=== PATIENT | female | born 1955 | race Caucasian/White ===

== ENCOUNTER 2016-09-18 15:28 | Outpatient (CLI) | payer OTHER | END 2016-09-18 15:29 | disposition home or self-care (01) | DX: R05 Cough (principal); R06.00 Dyspnea, unspecified; I51.7 Cardiomegaly ==

== ENCOUNTER 2018-05-11 17:06 | Outpatient (CLI) | payer MEDICARE, OTHER ==
--- NOTE | 2018-05-12 08:02 | Ultrasound Report ---
Reason: ABNORMAL UTERINE AND VAGINAL BLEEDING, UNSPECIFIED Procedure Date: 05/11/2018 Accession Number: [id number] / [id number] Procedure: US - Pelvic w/Transvaginal CPT Code: FULL RESULT: EXAM: PELVIC ULTRASOUND EXAM DATE: 05/11/2018 06:37 PM. CLINICAL HISTORY: ABNORMAL UTERINE AND VAGINAL BLEEDING, UNSPECIFIED. COMPARISON: None. TECHNIQUE: Realtime transabdominal pelvic scan performed to identify the uterus and adnexa and as an overview of other pelvic structures, followed by transvaginal scan to provide greater detail of the uterus and adnexa, with static image documentation. FINDINGS: Uterus: 11.4 x 6.9 x 5.8 cm, volume 239 cc. Anteverted position. Normal overall size and echotexture. Masses: There are several uterine fibroids. There is a submucosal fibroid of the posterior body measuring 2.4 x 1.4 cm and causing greater than 50% impression upon the endometrium. There are several other myometrial fibroids measuring up to 2.9 cm Endometrium: 10 mm. Cervix: Unremarkable. The ovaries are not well visualized. The examination is limited by body habitus. Free Fluid: None. IMPRESSION: 1. Submucosal fibroid may be associated with clinical symptoms 2. The endometrial complex is enlarged for a postmenopausal patient. Recommend [facility] consultation. RADIA
== END 2018-05-11 17:07 | disposition home or self-care (01) ==
LOC: DI 17:06
PROVIDERS: ATTEND Registered Nurse
DX: N93.9 Abnormal uterine and vaginal bleeding, unspecified (principal); D25.0 Submucous leiomyoma of uterus
CPT/HCPCS: 76830; 76856

== ENCOUNTER 2019-12-26 12:15 | Outpatient (CLI) | payer MEDICARE, OTHER ==
--- NOTE | 2019-12-26 13:31 | CT Report ---
Reason: RENAL COLIC Procedure Date: 12/26/2019 Accession Number: [id number] / [id number] Procedure: CT - Abdomen/Pelvis WO CPT Code: Final Report FULL RESULT: EXAM: CT ABDOMEN AND PELVIS (CT KUB) EXAM DATE: 12/26/2019 12:30 PM. CLINICAL HISTORY: Renal colic. COMPARISONS: None. TECHNIQUE: Routine axial helical CT imaging was performed through the abdomen and pelvis without IV contrast. Reconstructions: Coronal and sagittal. In accordance with CT protocol optimization, one or more of the following dose reduction techniques were utilized for this exam: automated exposure control, adjustment of mA and/or KV based on patient size, or use of iterative reconstructive technique. FINDINGS: Lung Bases: Lung bases appear clear. Borderline cardiomegaly. Right Kidney/Ureter: No stones, hydronephrosis, or hydroureter. No perinephric fat stranding. Left Kidney/Ureter: 1 mm nonobstructing calculus in the lower pole. No hydronephrosis. No ureteral stones or dilatation. Other Solid Organs: Liver is subtly and diffusely decreased in attenuation, suggesting fatty infiltration. The spleen, pancreas, and adrenal glands appear within normal limits. Gallbladder/Bile Ducts: Previous cholecystectomy. No biliary ductal dilatation. Peritoneal Cavity: No bowel obstruction, free air or free fluid. No evidence of diverticulitis, colitis, or appendicitis. There is a small umbilical hernia containing mesenteric fat. Pelvic Organs: No bladder stones or wall thickening. Noncontrast images of the visualized pelvic organs are unremarkable. Vasculature: Mural calcification of the abdominal aorta. No aneurysm. Other: None. IMPRESSION: 1 mm nonobstructing left renal calculus. No right-sided nephrolithiasis. Suspected diffuse fatty infiltration of the liver. No acute appearing bowel processes detected. RADIA
== END 2019-12-26 12:16 | disposition home or self-care (01) ==
LOC: DI 12:15
PROVIDERS: ATTEND Registered Nurse
DX: N20.0 Calculus of kidney (principal)
CPT/HCPCS: 74176

== ENCOUNTER 2020-05-07 11:20 | Outpatient (CLI) | payer MEDICARE, OTHER ==
--- NOTE | 2020-05-07 12:27 | SLEEP CARE CONSULTATION ---
Information from patient questionnaire entered by Radha Camacho. I have reviewed and concur with the information entered by Radha Camacho. This document represents the service I personally performed and the decisions made by me, Darci Rodgers MD, [facility]. History of Present Illness Service Date and Time: 05/07/2020 1120 Reason for Visit: New patient Chief Complaint: reports: Insomnia, Unrefreshed sleep, Snoring, Excessive daytime sleepiness, Observed pauses in breathing, Fatigue, Frequent awakenings at night Date of Onset: years Usual bedtime: 2300 Time it takes to fall asleep: 30 minutes Snores at night: Yes Observed to quit breathing while asleep: No Sleeps alone due to snoring: No Number of times waking at night: 1-2 Reasons for waking at night: reports: Pain Toss, Turn, or Twitch while sleeping: Yes Usually gets out of bed at: [id number] Feels refreshed in the morning: No Morning headache: No Sleepy or fatigued during the day: No Ever fallen asleep while driving: No Takes day naps: No Dreams during day naps: No Prior sleep studies: Yes Year and Where: 10+ years ago, [facility] [place] Type of Sleep Study: Polysomnography Additional HPI information: I had the pleasure of seeing Ms. Toscano along with her daughter today regarding obstructive sleep apnea-hypopnea. As you know, she is a 65 year old lady who was diagnosed with very severe obstructive sleep apnea-hypopnea in 2012 at [facility]. Her AHI was 81.4 and vijay oxygen saturation, 77%. She was prescribed a CPAP which she used occasionally. She got a new autoCPAP device in October of 2016. The Respironics DreamStation was set at 14 20 cmH2O. She again used it sporadically and finally quit in February last year. Prior to quitting, the device reported a residual AHI of 12.6 and 4 minutes of large air leak a day. She has a ResMed AirFit N-10 nasal mask which she cannot use because she is a mouth breather. She had a full face mask in the past but was claustrophobic with it. She did reports significant improvement when she could use the CPAP and would like to try it again. [employer] is her durable medical supplier. Subjective Initial [place] Sleepiness Scale score: 2 (in 2020) Past Medical History Past Medical History: reports: Hypertension, Congestive Heart Failure, Arthritis, Fibromyalgia, Anxiety, Other (A Fib) Social History The patient's occupation is retired. Patient is and lives in [place]. Have you smoked in the past 12 months: No Cigarettes per day (20/pack): 2 (20/week) Years of smokin Quit date: 1973 Smoking Pack Years: 0.5 Alcohol use: Yes Alcohol amount and frequency: 2/daily Caffeine use: Yes Caffeine amount and frequency: 1-2 cups Family History Family history of sleep disordered breathing: Yes Family Hx Sleep Apnea: Other: Sleep apnea - Treated (children) Allergies and Home Medications Drug allergies reviewed: Yes Home medication list reviewed: Yes Review of Systems Weight gain over past 5 years: 30 Cardiovascular: reports: high blood pressure, irregular heart rate or pulse, leg or foot swelling Respiratory: reports: sputum production, chronic cough Gastrointestinal: denies: heartburn, difficulty swallowing, nausea, vomitting, diarrhea, abdominal pain, other Urinary: reports: incontinence Neurological: denies: headaches, seizure, head trauma, disorientation, speech dysfunction, gait or balance problems, fainting or unconsciousness, other Psychiatric: reports: anxiety Ear/Nose/Throat: reports: nasal congestion, sinus problems, tonsillectomy, wisdom teeth removed Endocrine: denies: thyroid disease, history of goiter, sluggishness, too hot or cold, excessive thirst, increased appetite, increased urination, unexplained weakness, other Musculoskeletal: reports: joint pain, neck pain, back pain, joint swelling, mobility problems Immunologic: reports: sneezing, rash, other (exema) Physical Exam Vital signs obtained and entered by: To minimize the risk of COVID-19 exposure, detailed exam was not performed. Height: 5 ft 7 in Weight: 375 lb Body Mass Index: 58.7 BMI Classification: Morbidly Obese Impression and Plan IMPRESSION: 1. Obstructive Sleep Apnea-Hypopnea Syndrome, very severe, as previously diagnosed. Besides loud snore, the patient is fairly asymptomatic. She does have hypertension that could be made worse with leaving obstructive sleep apnea- hypopnea untreated. Narrow oropharynx and obesity are common predisposing factors for obstructive sleep apnea-hypopnea syndrome. I will order her a newer full face mask. Plan: 1. Prescription made for supplies. RespirBidKinds DreamWear full face mask and ResMed F30i full face mask were specified. 2. Avoid long distance driving or when feeling sleepy. 3. Avoid alcohol, sedative and muscle relaxant around bedtime. 4. Attempt to lose weight. 5. Return for follow up in 1 2 months. Prescriptions: Device supplies Follow up with Sleep Care in: 1-2 months Follow up recommended for: Weight management Visit Type: In Office Other Participants: Child Time Spent with Patient (minutes): 15 Provider Statement: I spent 100% of the Face to Face Visit with the patient with greater than 50% spent counseling the patient and coordination of care.
== END 2020-05-07 11:21 | disposition home or self-care (01) ==
LOC: SC 11:20
PROVIDERS: ATTEND Internal Medicine Pulmonary Disease
DX: G47.33 Obstructive sleep apnea (adult) (pediatric) (principal); E66.01 Morbid (severe) obesity due to excess calories; Z68.43 Body mass index [BMI] 50.0-59.9, adult
CPT/HCPCS: 99203; G0463; 99212

== ENCOUNTER 2020-08-06 12:45 | Outpatient (CLI) | payer MEDICARE, OTHER ==
--- NOTE | 2020-08-06 23:04 | SLEEP CARE CONSULTATION ---
Information from patient questionnaire entered by Emili Lewis. I have reviewed and concur with the information entered by Emili Lewis. This document represents the service I personally performed and the decisions made by me, Darci Rodgers MD, [facility]. History of Present Illness Service Date and Time: 08/06/2020 1245 Previous diagnosis: Very Severe, Obstructive Sleep Apnea-Hypopnea Syndrome AHI: 81.4 (in 2012) Reason for follow up: three month Equipment type: CPAP Equipment obtained from: [employer] Mask style: Nasal Mask brand: Resmed Prior sleep studies: Yes Year and Where: 2013 - [facility] Type of Sleep Study: Polysomnography HPI additional information: HPI: Ms. Toscano returned today for annual follow up of nasal CPAP therapy. She was diagnosed to have very severe obstructive sleep apnea-hypopnea syndrome. The patient gets her supplies from [employer]. She now wears a Respironics DreamWear full face mask. She continues to use the device most nights but not all through the night. The compliance report shows usage in 27 nights out of the past 30 nights, averaging 4.6 hours a night. The > 4 hour compliance rate for the past 30 days is 60%. She complained of dryness in her nose despite having the heated humidifier set at 5. She thinks that the pressure of 14 - 20 cmH2O is too high as she can feel the pressure in her ears. On the CPAP therapy she notices improvement in her sleep quality, and that she wakes up feeling fresher in the morning and more awake/alert during the day. The average residual AHI is 4.0; and average time in large leak per day is 30 minutes. The 90th percentile pressure is 17 cmH2O. CPAP Compliance Data - Data Reviewed with Patient Average duration of nightly device use: 4 hr 36 min Compliance rate %: 60 Current pressure setting (cmH2O): 16-20 Humidity settin Heated hose settin Average residual AHI: 4.8 Average large leak: 30 min 53 sec Subjective Missed days of use due to: reports: mask issues Patient concerns: reports: nasal congestion, dry mouth, nose, throat, epistaxis Current pressure setting perceived as: too high Initial [place] Sleepiness Scale score: 2 (in 2019) Current [place] Sleepiness Scale score: 1 Allergies and Home Medications Drug allergies reviewed: Yes Home medication list reviewed: Yes Review of Systems Review of systems same as previous: Yes Physical Exam Vital signs obtained and entered by: To minimize the risk of COVID-19 exposure, detailed exam was not performed. Height: 5 ft 7 in Weight: 375 lb Body Mass Index: 58.7 BMI Classification: Morbidly Obese Impression and Plan IMPRESSION: 1. Obstructive Sleep Apnea-Hypopnea Syndrome, very severe, with the patient using the CPAP more but still has [id number] compliance. She reports significant improvement when she uses the CPAP. Her nasal passage dryness may be because she runs out of water near the end of the night. I will lower the pressure range for her comfort. PLAN: 1. AutoCPAP lowered to 10 - 15 cm H2O, saved on her memory card. 2. Try to lose weight 3. Fill the water reservoir back up when she goes to the bathroom in the middle of the night. 4. Return in two months to recheck the residual AHI on the lower pressure setting. Visit Type: In Office Time Spent with Patient (minutes): 15 Provider Statement: I spent 100% of the Face to Face Visit with the patient with greater than 50% spent counseling the patient and coordination of care.
== END 2020-08-06 12:46 | disposition home or self-care (01) ==
LOC: SC 12:45
PROVIDERS: ATTEND Internal Medicine Pulmonary Disease
DX: G47.33 Obstructive sleep apnea (adult) (pediatric) (principal); E66.01 Morbid (severe) obesity due to excess calories; Z68.43 Body mass index [BMI] 50.0-59.9, adult
CPT/HCPCS: 99213; G0463; 99212

== ENCOUNTER 2020-10-14 13:12 | Outpatient (CLI) | payer MEDICARE, OTHER ==
--- NOTE | 2020-10-14 13:10 | SLEEP CARE CONSULTATION ---
Information from patient questionnaire entered by Diogenes Maldonado. I have reviewed and concur with the information entered by Diogenes Maldonado. This document represents the service I personally performed and the decisions made by me, Darci Rodgers MD, [facility]. History of Present Illness Service Date and Time: 10/14/2020 1300 Previous diagnosis: Very Severe, Obstructive Sleep Apnea-Hypopnea Syndrome AHI: 81.4 Reason for follow up: other (2-month followup - pressure change) Equipment type: CPAP Equipment obtained from: [employer] ([place]) Prior sleep studies: Yes Year and Where: 10+ years ago, [facility], [place] Type of Sleep Study: Polysomnography HPI additional information: To minimize the risk of COVID-19 exposure, the patient has requested and consented to this telephone visit. The patient also agrees to having her insurance billed. HPI: Ms. Toscano returned today for follow up of nasal CPAP therapy after the pressure was lowered from 14 20 to 10 15 cmH2O. She reports using the device nightly and all through the night. The compliance report shows usage in 22 nights out of the past 30 nights, averaging 7.6 hours a night averaging. She complained of no particular problem with the device such as soreness on the face, dry nose, epistaxis, nasal congestion or headache. She thinks that the pressure of 10 - 15 cmH2O is comfortable. On the CPAP therapy she notices impr ovement in her sleep quality, and that she wakes up feeling fresher in the morning and more awake/alert during the day. Her notices no snore at all. The average residual AHI is 3.8 and average time in large leak per day is 13 minutes. CPAP Compliance Data - Data Reviewed with Patient Average duration of nightly device use: 7 h 36 min Compliance rate %: 63.3 Current pressure setting (cmH2O): 10-15 Humidity settin Heated hose settin Average residual AHI: 3.8 Average large leak: 13 min 11 sec Subjective Initial [place] Sleepiness Scale score: 2 (in 2019) Allergies and Home Medications Drug allergies reviewed: Yes Home medication list reviewed: Yes Review of Systems Review of systems same as previous: Yes Physical Exam Height: 5 ft 7 in Impression and Plan IMPRESSION: 1. Obstructive Sleep Apnea-Hypopnea Syndrome, with the patient doing well on nasal CPAP therapy. She has excellent compliance and significant clinical improvement. The current pressure appears effective and comfortable. Overall, she is very satisfied with treatment and plans to continue with it long-term. No adjustment is necessary today. PLAN: 1. Continue with autoCPAP set at 10 - 15 cmH2O. 2. Try to lose weight 3. Try other masks and nasal pillows. 4. Return in one year for follow up or earlier if there is any problem with the treatment. Follow up recommended for: Weight management Visit Type: Telehealth Phone Patient Location: Home Location of Provider: Office Patient agrees and consents to this telehealth visit type: Yes Patient agrees to have their insurance billed: Yes Time Spent with Patient (minutes): 12 Provider Statement: I spent 100% of the Telehealth Phone Call with the patient with greater than 50% spent counseling the patient and coordination of care.
== END 2020-10-14 13:13 | disposition home or self-care (01) ==
LOC: SC 13:12
PROVIDERS: ATTEND Internal Medicine Pulmonary Disease
DX: G47.33 Obstructive sleep apnea (adult) (pediatric) (principal)

== ENCOUNTER 2020-11-19 07:55 | Outpatient (CLI) | payer MEDICARE, OTHER ==
[2020-11-19 16:02] LABS: ALT ALANINE AMINOTRANSFERASE 41 IU/L (10-60); AST ASPARTATE AMINOTRANSFERASE 41 IU/L (10-42); CHOL/HDL RATIO 2.8 (<4.4); CHOLESTEROL 138 mg/dL; CK- CREATINE KINASE 70 IU/L (22-269); HDL CHOLESTEROL 49 mg/dL; LDL CHOLESTEROL,CALCULATED 65 mg/dL; LDL CHOLESTEROL,DIRECT 66 mg/dL; LDL/HDL RATIO 1.3 (<4.4); TRIGLYCERIDES 121 mg/dL; VLDL CHOLESTEROL 24 mg/dL
== END 2020-11-19 07:56 | disposition home or self-care (01) ==
LOC: LAB.S 07:55
PROVIDERS: ATTEND Internal Medicine Cardiovascular Disease
DX: E78.5 Hyperlipidemia, unspecified (principal)
CPT/HCPCS: 36415; 80061; 82550; 83721; 84450; 84460

== ENCOUNTER 2020-11-19 08:00 | Outpatient (CLI) | payer MEDICARE, OTHER ==
--- NOTE | 2020-11-19 11:54 | XRAY Report ---
PROCEDURE: Shoulder 3 View LT INDICATIONS: IMPINGEMENT SYNDROME OF LEFT SHOULDER TECHNIQUE: 3 views of the shoulder were acquired. COMPARISON: None. FINDINGS: Bones: No fractures or dislocations. There is moderate volume of joint space loss and pronounced mar ginal spurring at the humeral head and caudal glenoid. Subcortical sclerotic changes within the gleno id is present. No suspicious bony lesions. Visualized ribs appear intact. Soft tissues: No suspicious soft tissue calcifications. No visible loose bodies. IMPRESSION: 1. Moderate glenohumeral joint degenerative change. Reviewed by: Justine Gutiérrez MD on 11/19/2020 10:53 AM TOREY Approved by: Justine Gutiérrez MD on 11/19/2020 10:53 AM TOREY Station ID: [id number]
== END 2020-11-19 23:59 | disposition home or self-care (01) ==
LOC: DI.S 08:00
PROVIDERS: ATTEND Emergency Medicine
DX: M75.42 Impingement syndrome of left shoulder (principal); M19.012 Primary osteoarthritis, left shoulder; E78.5 Hyperlipidemia, unspecified
CPT/HCPCS: 36415; 80061; 82550; 83721; 84450; 84460

== ENCOUNTER 2021-01-04 13:59 | Outpatient (CLI) | payer MEDICARE, OTHER ==
--- NOTE | 2021-01-04 17:54 | XRAY Report ---
PROCEDURE: Hip w/Pelvis 2-3V RT INDICATIONS: RIGHT HIP PAIN TECHNIQUE: AP pelvis with lateral view(s) of the right hip(s). COMPARISON: None. FINDINGS: Bones: No fractures or dislocations. Pelvic ring appears intact. No suspicious bony lesions. There is moderate to severe superior joint space narrowing seen involving the right hip. There is ass ociated remodeling change, with subchondral sclerosis and osteophyte formation. Moderate degenerative change is seen of the contralateral left hip Soft tissues: The visualized bowel gas pattern is normal. No suspicious soft tissue calcifications. Note is made of pelvic phleboliths. IMPRESSION: Moderate to severe right hip degenerative change. Reviewed by: Scottie Bella MD on 01/04/2021 4:53 PM AKBALWINDER Approved by: Scottie Bella MD on 01/04/2021 4:53 PM AKBALWINDER Station ID: [id number]
== END 2021-01-04 14:00 | disposition home or self-care (01) ==
LOC: DI.S 13:59
PROVIDERS: ATTEND Registered Nurse
DX: M16.11 Unilateral primary osteoarthritis, right hip (principal)

== ENCOUNTER 2021-01-31 09:10 | Outpatient (CLI) | payer MEDICARE, OTHER ==
[2021-01-31] MEDS ORDERED: PERFLUTREN LIPID MICROSPHERES 1.65 MG/1.5 ML VIAL IVP ONE (12:27)
== END 2021-01-31 09:11 | disposition home or self-care (01) ==
LOC: DI 09:10
PROVIDERS: ATTEND Internal Medicine Cardiovascular Disease
DX: I48.91 Unspecified atrial fibrillation (principal); I51.7 Cardiomegaly; I87.8 Other specified disorders of veins
CPT/HCPCS: C8929; Q9957; 93306

== ENCOUNTER 2021-02-28 10:11 | Outpatient (CLI) | payer MEDICARE, OTHER ==
[~2021-02-28 10:11] MED LIST: BUFFERED LIDOCAINE 10 ML SYRINGE ONE; ROPIVACAINE 0.5% PF 20 ML AMPULE ONE; TRIAMCINOLONE 40 MG/ML VIAL ONE
[2021-02-28] MEDS ORDERED: BUFFERED LIDOCAINE 10 ML SYRINGE ONE (11:30)
[2021-02-28] MEDS: iohexoL-240 20 ML VIAL IVP ONE (16:16)
[2021-02-28] MEDS: BUFFERED LIDOCAINE 10 ML SYRINGE IU ONE (16:18)
[2021-02-28] MEDS: ROPIVACAINE 0.5% PF 20 ML AMPULE EP ONE (16:22)
[2021-02-28] MEDS: TRIAMCINOLONE 40 MG/ML VIAL IM ONE (16:24)
--- NOTE | 2021-03-07 15:39 | XRAY Report ---
PROCEDURE: Arthrogram Hip RT INDICATIONS: OSTEOARTHRITIS RIGHT HIP CONTRAST: CONTRAST: omnipaque FLUORO TIME: FLUORO TIME: 2.4 and NUMBER IMAGES: 2 TECHNIQUE: The indications, alternatives, benefits, risks, and complications of the procedure were explained to the patient. Written informed consent was obtained and placed in the chart. The patient was placed in an appropriate position on the fluoroscopy table, and a site was chosen for percutaneous access un christina fluoroscopic guidance. Local anesthetic was administered using a 1% lidocaine solution. A hypod ermic or spinal needle was then used to access the symptomatic joint. Intra-articular location of th e needle tip was confirmed by injecting a small amount of contrast, followed by steroid administratio n. The needle was then withdrawn, and a bandage applied to the puncture site. FINDINGS: Joint injected: Right hip Medications injected: 4 mL of 40 mg/mL Kenalog and 0.5% Ropivacaine mixture. Complications: None. Pain level prior to injection 9-10 Pain level after injection 0. IMPRESSION: Successful fluoroscopically guided administration of steroid and anaesthetic solution into the right hip joint. Reviewed by: Erma Aguero MD on 03/07/2021 3:38 PM PDT Approved by: Erma Aguero MD on 03/07/2021 3:38 PM PDT Station ID: [id number]
== END 2021-02-28 10:12 | disposition home or self-care (01) ==
LOC: DI 10:11
PROVIDERS: ATTEND Registered Nurse
DX: M16.11 Unilateral primary osteoarthritis, right hip (principal)
CPT/HCPCS: Q9966

== ENCOUNTER 2021-03-17 17:56 | Outpatient (CLI) | payer MEDICARE, OTHER ==
[2021-03-17 20:13] LABS: BASOPHILS # (AUTO) 0.1 10^3/uL (0.0-0.1); BASOPHILS % (AUTO) 0.5 %; EOSINOPHILS # (AUTO) 0.2 10^3/uL (0.0-0.7); EOSINOPHILS % (AUTO) 1.9 %; HGB - HEMOGLOBIN 11.9 g/dL (12.0-16.0); LYMPHOCYTES # (AUTO) 2.4 10^3/uL (1.5-3.5); LYMPHOCYTES % (AUTO) 25.8 %; MEAN CORPUSCULAR HEMOGLOBIN 33.4 pg (27.0-31.0); MEAN CORPUSCULAR HGB CONC 32.2 g/dL (32.0-36.0); MEAN CORPUSCULAR VOLUME 103.9 fL (81.0-99.0); MEAN PLATELET VOLUME 9.2 fL (7.9-10.8); MONOCYTES # (AUTO) 0.9 10^3/uL (0.0-1.0); MONOCYTES % (AUTO) 9.8 %; NEUTROPHILS # (AUTO) 5.7 10^3/uL (1.5-6.6); NEUTROPHILS % (AUTO) 61.4 %; PLT - PLATELET COUNT 250 10^3/uL (130-450); RED BLOOD COUNT 3.56 10^6/uL (4.20-5.40); RED CELL DISTRIBUTION WIDTH 14.5 % (12.0-15.0); WHITE BLOOD COUNT 9.3 x10^3/uL (4.8-10.8)
[2021-03-17 20:29] LABS: % IRON SATURATION 19 % (20-50); IRON 71 ug/dL (28-170); TOTAL IRON BINDING CAPACITY 374 ug/dL (250-450); TRANSFERRIN 267 mg/dL (192-382)
== END 2021-03-17 17:57 | disposition home or self-care (01) ==
LOC: LAB.S 17:56
PROVIDERS: ATTEND Registered Nurse
DX: N95.0 Postmenopausal bleeding (principal)
CPT/HCPCS: 36415; 82728; 83540; 84466; 85025

== ENCOUNTER 2021-03-31 13:57 | Outpatient (CLI) | payer MEDICARE, OTHER | END 2021-03-31 13:58 | disposition critical access hospital (66) | LOC: EMS 13:57 | DX: N93.9 Abnormal uterine and vaginal bleeding, unspecified (principal); R42 Dizziness and giddiness; R10.30 Lower abdominal pain, unspecified | CPT/HCPCS: A0425; A0427 ==

== ENCOUNTER 2021-03-31 14:28 | Emergency (ER) | payer MEDICARE, OTHER ==
[2021-03-31 15:07] LABS: BASOPHILS # (AUTO) 0.1 10^3/uL (0.0-0.1); BASOPHILS % (AUTO) 0.7 %; EOSINOPHILS # (AUTO) 0.1 10^3/uL (0.0-0.7); EOSINOPHILS % (AUTO) 1.9 %; HGB - HEMOGLOBIN 8.7 g/dL (12.0-16.0); LYMPHOCYTES # (AUTO) 1.7 10^3/uL (1.5-3.5); LYMPHOCYTES % (AUTO) 22.9 %; MEAN CORPUSCULAR HEMOGLOBIN 35.1 pg (27.0-31.0); MEAN CORPUSCULAR HGB CONC 32.2 g/dL (32.0-36.0); MEAN CORPUSCULAR VOLUME 108.9 fL (81.0-99.0); MEAN PLATELET VOLUME 8.4 fL (7.9-10.8); MONOCYTES # (AUTO) 0.7 10^3/uL (0.0-1.0); MONOCYTES % (AUTO) 10.2 %; NEUTROPHILS # (AUTO) 4.6 10^3/uL (1.5-6.6); NEUTROPHILS % (AUTO) 63.6 %; NRBC ABSOLUTE COUNT (AUTO) 0.07 x10^3/uL; PLT - PLATELET COUNT 215 10^3/uL (130-450); RED BLOOD COUNT 2.48 10^6/uL (4.20-5.40); RED CELL DISTRIBUTION WIDTH 15.4 % (12.0-15.0); WHITE BLOOD COUNT 7.3 x10^3/uL (4.8-10.8)
[2021-03-31 15:21] LABS: ALBUMIN 3.6 g/dL (3.2-5.5); ALBUMIN/GLOBULIN RATIO 1.3 (1.0-2.2); BILIRUBIN,TOTAL 0.6 mg/dL (0.2-1.0); CALCIUM 8.4 mg/dL (8.5-10.3); CREATININE 0.8 mg/dL (0.4-1.0); POTASSIUM 4.1 mmol/L (3.5-5.0); TOTAL PROTEIN 6.4 g/dL (6.7-8.2)
[2021-03-31] MEDS ORDERED: TRANEXAMIC ACID 1,000 MG in SODIUM CHLORIDE 0.9% 100ML 100 ML IV STA (15:33)
--- NOTE | 2021-03-31 15:40 | ED Physician Documentation ---
History of Present Illness - Stated complaint Stated Complaint: FEMALE - Chief complaint Chief Complaint: General - History obtained from History obtained from: Patient - History of Present Illness Timing: How many weeks ago (3.5) Pain level max: 0 Pain level now: 0 - Additonal information Additional information: 65-year-old female presents to the emergency department stating that she has a long history of dysfunctional uterine bleeding. She states she has seen several gynecologists. Her entire family has had to have hysterectomies. She is a Judaism and does not take blood products. She states increasing bleeding over the past 3-1/2 weeks. Feeling lightheaded, dizzy and weak. She states she has gone through 7-8 pads of this morning. She states she does wear 2-3 pads at a time. Nothing makes it better or worse. No chest pain. She states that she has had endometrial biopsies before, she believes that she had these [facility]. Review of Systems Ten Systems: 10 systems reviewed and negative Constitutional: denies: Fever, Chills Respiratory: denies: Cough GI: denies: Nausea, Vomiting : reports: Vaginal bleeding. denies: Dysuria, Frequency, Hesitancy Skin: denies: Rash Musculoskeletal: denies: Neck pain, Back pain Neurologic: denies: Headache PD PAST MEDICAL HISTORY - Past Medical History Past Medical History: Yes : Other (uterine fibroids.) - Present Medications Home Medications: Ambulatory Orders Medication Instructions Recorded Confirmed Atorvastatin [Lipitor] 40 mg PO DAILY 03/31/21 03/31/21 DULoxetine [Cymbalta] 20 mg PO DAILY 03/31/21 03/31/21 Furosemide [Lasix] 40 mg PO DAILY 03/31/21 03/31/21 Irbesartan [Avapro] 75 mg PO DAILY 03/31/21 03/31/21 Medroxyprogesterone Acetate 10 mg PO DAILY #30 tablet 03/31/21 [Provera] Metoprolol Succinate [Toprol Xl] 75 mg PO DAILY 03/31/21 03/31/21 Progesterone,Micronized 200 mg PO DAILY 03/31/21 03/31/21 [Prometrium] Rivaroxaban [Xarelto] 20 mg PO DAILY 03/31/21 03/31/21 - Allergies Allergies/Adverse Reactions: Allergies Allergy/AdvReac Type Severity Reaction Status Date / Time atenolol Allergy Respiratory Verified 03/31/21 14:49 lisinopril Allergy Respiratory Verified 03/31/21 14:49 - Living Situation Living Situation: reports: With family Living Arrangement: reports: At home - Social History Does the pt smoke?: No Does the pt have substance abuse?: No - Family History Family history: reports: Non contributory PD ED PE NORMAL - Vitals Vital signs reviewed: Yes - General General: Alert and oriented X 3, No acute distress, Well developed/nourished - HEENT HEENT: PERRL, Moist mucous membranes - Neck Neck: Supple, no meningeal sign - Cardiac Cardiac: RRR, Strong equal pulses - Respiratory Respiratory: No respiratory distress, Clear bilaterally - Abdomen Abdomen: Soft, Non tender, Non distended - Derm Derm: Warm and dry - Extremities Extremities: No edema - Neuro Neuro: Alert and oriented X 3 - Psych Psych: Normal mood, Normal affect Results - Vitals Vitals: Vital Signs - 24 hr 03/31/21 03/31/21 03/31/21 14:44 15:18 15:30 Temperature 36.4 C L Heart Rate 114 H 106 H 103 H Respiratory 16 19 21 Rate Blood Pressure 104/50 L 104/77 102/69 O2 Saturation 95 98 97 03/31/21 03/31/21 03/31/21 16:00 16:30 17:00 Temperature 36.5 C Heart Rate 98 133 H 107 H Respiratory 18 19 22 Rate Blood Pressure 100/65 85/74 L 105/61 O2 Saturation 100 95 94 03/31/21 03/31/21 03/31/21 17:30 18:00 18:30 Temperature Heart Rate 103 H 95 98 Respiratory 17 20 19 Rate Blood Pressure 120/72 113/77 100/70 O2 Saturation 96 100 98 03/31/21 03/31/21 19:00 19:30 Temperature 36.6 C Heart Rate 102 H 84 Respiratory 18 16 Rate Blood Pressure 104/71 106/50 L O2 Saturation 100 98 Oxygen O2 Source Room air - Labs Labs: Laboratory Tests 03/31/21 03/31/21 03/31/21 15:00 15:00 18:28 WBC 7.3 RBC 2.48 L Hgb 8.7 L 8.7 L Hct 27.0 L 27.4 L MCV 108.9 H MCH 35.1 H MCHC 32.2 RDW 15.4 H Plt Count 215 MPV 8.4 Neut # (Auto) 4.6 Lymph # (Auto) 1.7 [place] # (Auto) 0.7 Eos # (Auto) 0.1 Baso # (Auto) 0.1 Absolute Nucleated RBC 0.07 Nucleated RBC % 1.0 Sodium 136 Potassium 4.1 Chloride 97 L Carbon Dioxide 27 Anion Gap 12.0 BUN 13 Creatinine 0.8 Estimated GFR (MDRD) 72 L Glucose 124 H Calcium 8.4 L Total Bilirubin 0.6 AST 28 ALT 23 Alkaline Phosphatase 47 Total Protein 6.4 L Albumin 3.6 Globulin 2.8 Albumin/Globulin Ratio 1.3 Lipase 48 - Rads (name of study) Pelvic ultrasound Radiology: Final report received, EMP read contemporaneously, See rad report PD MEDICAL DECISION MAKING - ED course Complexity details: reviewed results, re-evaluated patient, considered differential, d/w patient, d/w family, d/w sales support consultant ED course: 65-year-old female presents with dysfunctional uterine bleeding and menorrhagia. Given tranexamic acid. Discussed the case with Dr. Toscano, gynecology on- call who came and evaluated the patient in the emergency department. Recommends medroxyprogesterone. She will plan on taking the patient likely later this week for a D&C. Patient is also on Eliquis. Recommend that she hold this for a few weeks until her bleeding has resolved. She would consider being switched to aspirin for her A. fib. We will have her follow-up with her doctor regarding this. Hemoglobin is stable in the emergency department. Bleeding seems to have slowed significantly. Patient and family counseled regarding signs and symptoms for which I believe and urgent re-evaluation would be necessary. Patient with good understanding of and agreement to plan and is comfortable going home at this time This document was made in part using voice recognition software. While efforts are made to proofread this document, sound alike and grammatical errors may occur. IMPRESSION: 1. Enlarged leiomyomatous uterus. 2. Thickened endometrium raises suspicion for endometrial carcinoma. Recommend gynecologic consultation to evaluate for D C. 3. Fluid and clot in the cervical canal. Small 0.9 cm diameter masslike nodule noted in the cervical canal which could represent polyp, or other neoplastic process or blood Departure - Departure Disposition: 01 Home, Self Care Clinical Impression: Dysfunctional uterine bleeding Condition: Good Instructions: ED Bleed Irregular Vaginal Follow-Up: Sabine Wood ARNP [Primary Care Provider] - Iesha Toscano MD [Provider Admit Priv/Credential] - Prescriptions: Medroxyprogesterone Acetate [Provera] 10 mg PO DAILY #30 tablet Comments: Follow up with Dr. Toscano for further care. You should discuss with your primary care provider tomorrow stopping the Xarelto until your vaginal bleeding has resolved. They can try changing you to aspirin instead. Start the medroxyprogesterone tomorrow as well. Return if you worsen. Discharge Date/Time: 03/31/21 19:47
[2021-03-31] MEDS ORDERED: SODIUM CHLORIDE 0.9% 1,000 ML IV STA (16:39)
--- NOTE | 2021-03-31 17:46 | Ultrasound Report ---
PROCEDURE: Pelvic w/Transvag+Doppler Comp INDICATIONS: menorrhagia, dysfucntional uterine bleeding TECHNIQUE: Real-time scanning was performed of the pelvic organs, with image documentation. Additional endovagi nal scanning was necessary due to incomplete visualization of the adnexal and endometrial structures by transabdominal scanning. COMPARISON: None. FINDINGS: No pathologic free abdominal or pelvic fluid. Uterus: Uterus is normal in size at 14.1 x 5.9 x 6.8 cm. Uterus is anteverted. Multiple uterine fibr oids identified. There is a 1.6 x 1.5 x 2.0 cm posterior submucosal uterine fibroid noted which produ tika mass effect on the endometrium. The endometrium measures 15.9 mm in combined thickness. Fluid and clot noted in the cervical canal. There is a masslike nodule in the cervical canal measures 0.9 cm i n diameter which may represent polyp or other neoplastic process versus blood clot. Ovaries: Right and left ovary are not identified and cannot be evaluated. IMPRESSION: 1. Enlarged leiomyomatous uterus. 2. Thickened endometrium raises suspicion for endometrial carcinoma. Recommend gynecologic consultati on to evaluate for D&C. 3. Fluid and clot in the cervical canal. Small 0.9 cm diameter masslike nodule noted in the cervical canal which could represent polyp, or other neoplastic process or blood Reviewed by: Chitra Melendrez MD, PhD on 03/31/2021 5:45 PM PDT Approved by: Chitra Melendrez MD, PhD on 03/31/2021 5:45 PM PDT Station ID: [id number]
[2021-03-31 18:34] LABS: HCT - HEMATOCRIT 27.4 % (37.0-47.0); HGB - HEMOGLOBIN 8.7 g/dL (12.0-16.0)
--- NOTE | 2021-03-31 18:39 | CONSULTATION NOTE ---
Referring Provider Consult Date: 03/31/21 History - Past Medical History : reports: Other (uterine fibroids.) - Family & Social History Living arrangement: At home Living Situation: With family Meds/Allgy - Home Medications Home Medications: Ambulatory Orders Medication Instructions Recorded Confirmed Atorvastatin [Lipitor] 40 mg PO DAILY 03/31/21 03/31/21 DULoxetine [Cymbalta] 20 mg PO DAILY 03/31/21 03/31/21 Furosemide [Lasix] 40 mg PO DAILY 03/31/21 03/31/21 Irbesartan [Avapro] 75 mg PO DAILY 03/31/21 03/31/21 Medroxyprogesterone Acetate 10 mg PO DAILY #30 tablet 03/31/21 [Provera] Metoprolol Succinate [Toprol Xl] 75 mg PO DAILY 03/31/21 03/31/21 Progesterone,Micronized 200 mg PO DAILY 03/31/21 03/31/21 [Prometrium] Rivaroxaban [Xarelto] 20 mg PO DAILY 03/31/21 03/31/21 - Allergies Allergies/Adverse Reactions: Allergies Allergy/AdvReac Type Severity Reaction Status Date / Time atenolol Allergy Respiratory Verified 03/31/21 14:49 lisinopril Allergy Respiratory Verified 03/31/21 14:49 Exam - Vital Signs Vital Signs: Vital Signs x48h Temp Pulse Resp BP Pulse Ox 03/31/21 18:30 98 19 100/70 98 03/31/21 18:00 95 20 113/77 100 03/31/21 17:30 103 H 17 120/72 96 03/31/21 17:00 107 H 22 105/61 94 03/31/21 16:30 133 H 19 85/74 L 95 03/31/21 16:00 97.7 F 98 18 100/65 100 03/31/21 15:30 103 H 21 102/69 97 03/31/21 15:18 106 H 19 104/77 98 03/31/21 14:44 97.6 F L 114 H 16 104/50 L 95 Conclusion/Plan - Lab Results Fish Bones: 03/31/21 18:28 03/31/21 15:00
[2021-03-31 19:47] VITALS: BP 106/50
== END 2021-03-31 19:47 | disposition home or self-care (01) ==
LOC: EDUNIT# → ED 14:28
DX: N93.8 Other specified abnormal uterine and vaginal bleeding (principal); N92.0 Excessive and frequent menstruation with regular cycle; D25.0 Submucous leiomyoma of uterus; Z79.01 Long term (current) use of anticoagulants; I48.91 Unspecified atrial fibrillation; Z20.822 Contact with and (suspected) exposure to COVID-19
CPT/HCPCS: 36415; 76830; 76856; 80053; 83690; 85014; 85018; 85025; 93975; 96361; 96365; 99284; A9270; U0004

== ENCOUNTER 2021-04-15 06:30 | Day surgery (SDC) | payer MEDICARE, OTHER ==
[2021-04-15] MEDS ORDERED: LACTATED RINGERS 1,000 ML IV ONE ×2 (06:41→09:49)
[2021-04-15] MEDS ORDERED: PROPOFOL 200 MG/20 ML VIAL IVP ONE (07:06)
[2021-04-15] MEDS ORDERED: ONDANSETRON 4 MG/2 ML VIAL ONE (07:06)
[2021-04-15] MEDS ORDERED: DEXAMETHASONE 4 MG/ML VIAL ONE (07:06)
[2021-04-15] MEDS ORDERED: LIDOCAINE-MPF 2% 5 ML VIAL ONE (07:06)
[2021-04-15] MEDS ORDERED: ROCURONIUM 50 MG/5 ML VIAL ONE (07:06)
[2021-04-15] MEDS ORDERED: fentaNYL 100 MCG/2 ML VIAL ONE (07:06)
[2021-04-15] MEDS ORDERED: BUPIVACAINE 0.5%-EPI 1:200000 PF 30 ML VIAL ONE (07:15)
[2021-04-15] MEDS ORDERED: SILVER NITRATE APPLICATOR TOP ONE ×3 (07:15→09:33)
--- NOTE | 2021-04-15 07:15 | ANESTHESIA ---
Pre-Anesthesia VS, & Labs - Diagnosis post-menopausal bleeding, thickened endometrium - Procedure Myosure hysteroscopy, D&C with polypectomy Vital Signs: Temp Pulse Resp BP Pulse Ox 39 C H 99 14 130/81 H 99 04/15/21 06:41 04/15/21 06:41 04/15/21 06:41 04/15/21 06:41 04/15/21 06:41 Height: 5 ft 7 in Weight (kg): 164.7 kg Body Mass Index: 56.8 BMI Classification: Morbidly Obese - NPO >8 hours - Is Patient ?: No - Lab Results Lab results reviewed: Yes Fish Bones: 04/15/21 07:30 Home Medications and Allergies Home Medications: Ambulatory Orders Aspirin [Aspirin EC] 81 mg PO DAILY 04/14/21 traMADol [Ultram] 50 mg PO Q6H PRN 04/14/21 Atorvastatin [Lipitor] 40 mg PO DAILY 03/31/21 DULoxetine [Cymbalta] 40 mg PO DAILY 03/31/21 Furosemide [Lasix] 40 mg PO DAILY 03/31/21 Irbesartan [Avapro] 75 mg PO DAILY 03/31/21 Metoprolol Succinate [Toprol Xl] 150 mg PO DAILY 03/31/21 Rivaroxaban [Xarelto] 20 mg PO DAILY 03/31/21 Aspirin [Aspirin EC] 81 mg PO DAILY 04/14/21 traMADol [Ultram] 50 mg PO Q6H PRN 04/14/21 Allergies/Adverse Reactions: Allergies Allergy/AdvReac Type Severity Reaction Status Date / Time atenolol Allergy cough Verified 04/14/21 09:00 lisinopril Allergy cough Verified 04/14/21 09:00 Anes History & Medical History - Anesthetic History Anesthesia Complications: reports: No previous complications Family history of Anesthesia Complications: Denies Family history of Malignant Hyperthermia: Denies - Medical History Cardiovascular: reports: Hypertension, High cholesterol, Atrial fibrillation Pulmonary: reports: Sleep apnea, CPAP use Gastrointestinal: reports: None Urinary: reports: Incontinence Musculoskeletal: reports: Osteoarthritis Endocrine/Autoimmune: reports: None Skin: reports: Eczema, Rosacea Smoking Status: Never smoker History of Cancer?: No - Surgical History General: reports: Cholecystectomy, Colonoscopy Gynecologic: reports: Other Exam General: Alert, Oriented x3, Cooperative Dental: WNL Mouth Openin Fingerbreadth Neck Mobility: Normal Mallampati classification: I Thyromental Distance: greater than 6 cm Respiratory: Lungs clear, Normal breath sounds, No respiratory distress Cardiovascular: Other (AF) Neurological: Normal speech Mental/Cognitive Status: Alert/Oriented X3, Normal for patient Cognitive Status: Within normal limits Plan Anesthesia Type: General Consent for Procedure(s) Verified and Reviewed: Yes Code Status: Attempt Resuscitation ASA classification: 3-Severe systemic disease Is this case an emergency?: No
[2021-04-15 07:37] LABS: BASOPHILS % (AUTO) 0.7 %; EOSINOPHILS # (AUTO) 0.2 10^3/uL (0.0-0.7); EOSINOPHILS % (AUTO) 3.3 %; HCT - HEMATOCRIT 30.3 % (37.0-47.0); HGB - HEMOGLOBIN 9.2 g/dL (12.0-16.0); LYMPHOCYTES # (AUTO) 1.3 10^3/uL (1.5-3.5); LYMPHOCYTES % (AUTO) 22.1 %; MEAN CORPUSCULAR HEMOGLOBIN 33.5 pg (27.0-31.0); MEAN CORPUSCULAR HGB CONC 30.4 g/dL (32.0-36.0); MEAN CORPUSCULAR VOLUME 110.2 fL (81.0-99.0); MEAN PLATELET VOLUME 8.2 fL (7.9-10.8); MONOCYTES # (AUTO) 0.6 10^3/uL (0.0-1.0); MONOCYTES % (AUTO) 10.7 %; NEUTROPHILS # (AUTO) 3.7 10^3/uL (1.5-6.6); NEUTROPHILS % (AUTO) 62.9 %; PLT - PLATELET COUNT 244 10^3/uL (130-450); RED BLOOD COUNT 2.75 10^6/uL (4.20-5.40); RED CELL DISTRIBUTION WIDTH 15.2 % (12.0-15.0); WHITE BLOOD COUNT 5.8 x10^3/uL (4.8-10.8)
[2021-04-15] MEDS ORDERED: ONDANSETRON 4 MG/2 ML VIAL IVP PRN (07:40)
[2021-04-15] MEDS ORDERED: MORPHINE 2 MG/ML CARPUJECT IVP PRN (07:40)
[2021-04-15] MEDS ORDERED: HYDROmorphone 0.5 MG/0.5 ML SYRINGE IVP PRN (07:40)
[2021-04-15] MEDS ORDERED: fentaNYL 100 MCG/2 ML VIAL IVP PRN (07:40)
[2021-04-15] MEDS ORDERED: ATROPINE ABBOJECT 1 MG/10 ML SYRINGE IVP PRN (07:40)
[2021-04-15] MEDS ORDERED: METOCLOPRAMIDE 10 MG/2 ML VIAL IVP PRN (07:40)
[2021-04-15] MEDS ORDERED: NALOXONE 0.4 MG/ML VIAL IVP PRN (07:40)
[2021-04-15] MEDS ORDERED: ePHEDrine 50 MG/ML VIAL IVP PRN (07:40)
[2021-04-15] MEDS ORDERED: LACTATED RINGERS 1,000 ML IV SCH (08:00)
[2021-04-15] MEDS ORDERED: CELECOXIB 100 MG CAPSULE PO ONE (08:07)
[2021-04-15] MEDS ORDERED: GABAPENTIN 400 MG CAPSULE ONE (08:07)
[2021-04-15] MEDS ORDERED: ACETAMINOPHEN 1,000 MG/100 ML 100 ML IV ONE (08:07)
[2021-04-15] MEDS ORDERED: BUPIVACAINE 0.5%-EPI 1:200000 PF 30 ML VIAL SUBQ ONE ×2 (09:14)
[2021-04-15] MEDS ORDERED: SUGAMMADEX 200 MG/2 ML VIAL IVP ONE (09:15)
--- NOTE | 2021-04-15 09:59 | OPERATIVE REPORT ---
Operative Report - General Procedure Date: 04/15/21 Planned Procedure: Pap smear, hysteroscopy and polypectomy, vaginal polyp Pre-Op Diagnosis: Postmenopausal bleeding, inadequate cervical cancer screening, anemia Procedure Performed: Pap smear, hysteroscopy D&C and possible polypectomy, and vaginal polyp Post Op Diagnosis: Same and vaginal polyp - Procedure Note Primary Surgeon: Ramona Toscano MD Anesthesia Provider: Stefanie Maldonado CRNA Pathology: 1) Pap smear 2) uterine contents 3) vaginal polyp IV Fluids (mL): 1,000 Estimated Blood Loss (mL): 5 Urine Output (mL): 50 Indications: Patient is a 65 yo who presents to the ED with dysfunctional uterine bleeding. Patient reports that she received a cortisone shot on 03/01/21 for chronic hip pain. Bleeding started shortly after that time. She started with spotting for 3- 4 day but then increased so that she was soaking 3 pads at a time, several times a day. She had bleeding like this quite a few years ago. Had heavy menses prior to menopause. History of monthly cycles every 28 days lasting 3 days in duration. Has had pelvic us in the past as well as an EMB. Feels that she has had several EMB for on-going post-menopausal bleeding but has never progressed to a D&C. Voices a general distrust for medical establishment. Not clear if D&C was offered or if it was offered and declined. Has had 3 at age 14, 17, and 24. Reports heavy menses started after the of her daughter in her teen years. Last biopsy was likely about 2.5 years ago. Has been on micronized progesterone 200 mcg. She started Xarelto about a year ago for afib. BMI 59. [employer] and declines all blood products. Would like ot have a hysterectomy at [facility] given their program for "bloodless surgery", which is an optimization program to avoid transfusion among [place]. Has passed several large clots while in ED but is not actively hemorrhaging. Has switched from Xarelto to ASA Findings: Thickened polypoid lining with smaller polyp noted at left tubal ostia. Uterine cavity smooth at close of procedure. Bilateral tubal ostia. Complications: None - Other Other Information/Narrative: Risks benefits and alternatives to the procedure were reviewed. Consent was again confirmed. Patient was taken to the operating room where she underwent general anesthesia. She was positioned in dorsolithotomy position with legs resting in yellowfin stirrups. She was prepped and draped in the usual sterile fashion. Preoperative antibiotics were not indicated. Preoperative checklist was performed. Exam under anesthesia was performed. Speculum was placed in the vagina and the cervix was visualized. Single-tooth tenaculum was placed at the anterior cervical lip. Paracervical block was administered using a total of 20 cc of 0.5% bupivicaine with epinephrine was injected at the 4:00 and 8:00 positions lateral to the portio of the cervix. The cervical os was serially dilated with Hegar dilators to accommodate the caliber of the diagnostic hysteroscope. Uterus sounded to 9 cm. The hysteroscope was inserted and findings were noted as above. The hysteroscopic morcellator was inserted through the operative port. The intrauterine polyps were morcellated under direct visualization. Uterine cavity was smooth at close of the procedure. Hysteroscope was removed. All instruments were removed from the uterus. Tenaculum was removed. Tenaculum sites were noted to be hemostatic. Vaginal polyp noted at left lateral aspect of the vaginal wall. A total of 5 cc of 0.5% bupivicaine with epinephrine was injected into the polyp base. The polyp was grasped with ring forceps, was twisted, and was easily removed in pieces. Silver nitrate was applied to the polyp base. Good hemostasis noted. All instruments were removed from the vagina. Procedure was well-tolerated without complication. Fluid deficit: 540 cc
--- NOTE | 2021-04-15 10:32 | ANESTHESIA POST OP EVALUATION ---
Anesthesia Post Eval - Post Anesthesia Eval Vitals: Last Vital Signs Temp 36.2 C L 04/15/21 10:21 Pulse 97 04/15/21 10:21 Resp 14 04/15/21 10:21 BP 118/53 L 04/15/21 10:21 Pulse Ox 97 04/15/21 10:21 CV Function Including HR & BP: Stable Pain Control: Satisfactory Nausea & Vomiting: Negative Mental Status: Baseline Respiratory Status: Airway Patent Hydration Status: Satisfactory Anesthesia Complications: None
[2021-04-15 10:33] VITALS: BP 122/62
== END 2021-04-15 06:31 | disposition home or self-care (01) ==
LOC: SDS 06:30
PROVIDERS: ATTEND Obstetrics & Gynecology
PROC: 0UBG7ZZ Excision of Vagina, Via Natural or Artificial Opening (ICD-10-PCS; 2021-04-15)
PROC: 0UB98ZZ Excision of Uterus, Via Natural or Artificial Opening Endoscopic (ICD-10-PCS; principal; 2021-04-15 07:30)
DX: N93.8 Other specified abnormal uterine and vaginal bleeding (principal); N95.0 Postmenopausal bleeding; N84.0 Polyp of corpus uteri; N84.2 Polyp of vagina; R93.89 Abnormal findings on diagnostic imaging of other specified body structures; D25.0 Submucous leiomyoma of uterus; D64.9 Anemia, unspecified; E66.01 Morbid (severe) obesity due to excess calories; Z68.43 Body mass index [BMI] 50.0-59.9, adult; I48.91 Unspecified atrial fibrillation; G47.30 Sleep apnea, unspecified; Z79.01 Long term (current) use of anticoagulants; I10 Essential (primary) hypertension
CPT/HCPCS: 57135; 58558; 85025; A9270; J0131; J7120

== ENCOUNTER 2021-05-01 14:05 | Outpatient (CLI) | payer MEDICARE, OTHER ==
[2021-05-01 19:46] LABS: BASOPHILS # (AUTO) 0.1 10^3/uL (0.0-0.1); BASOPHILS % (AUTO) 0.8 %; EOSINOPHILS # (AUTO) 0.2 10^3/uL (0.0-0.7); HCT - HEMATOCRIT 37.9 % (37.0-47.0); HGB - HEMOGLOBIN 11.6 g/dL (12.0-16.0); LYMPHOCYTES # (AUTO) 1.8 10^3/uL (1.5-3.5); LYMPHOCYTES % (AUTO) 27.9 %; MEAN CORPUSCULAR HEMOGLOBIN 32.4 pg (27.0-31.0); MEAN CORPUSCULAR HGB CONC 30.6 g/dL (32.0-36.0); MEAN CORPUSCULAR VOLUME 105.9 fL (81.0-99.0); MEAN PLATELET VOLUME 8.5 fL (7.9-10.8); MONOCYTES # (AUTO) 0.6 10^3/uL (0.0-1.0); MONOCYTES % (AUTO) 9.9 %; NEUTROPHILS # (AUTO) 3.7 10^3/uL (1.5-6.6); NEUTROPHILS % (AUTO) 57.9 %; PLT - PLATELET COUNT 296 10^3/uL (130-450); RED BLOOD COUNT 3.58 10^6/uL (4.20-5.40); RED CELL DISTRIBUTION WIDTH 13.2 % (12.0-15.0); WHITE BLOOD COUNT 6.4 x10^3/uL (4.8-10.8)
[2021-05-01 21:03] LABS: % IRON SATURATION 30 % (20-50); IRON 132 ug/dL (28-170); TOTAL IRON BINDING CAPACITY 435 ug/dL (250-450); TRANSFERRIN 311 mg/dL (192-382)
== END 2021-05-01 14:06 | disposition home or self-care (01) ==
LOC: LAB.S 14:05
PROVIDERS: ATTEND Registered Nurse
DX: D50.9 Iron deficiency anemia, unspecified (principal)
CPT/HCPCS: 36415; 82728; 83540; 84466; 85025

== ENCOUNTER 2021-06-25 15:13 | Emergency (ER) | payer MEDICARE, OTHER ==
[2021-06-25 16:06] LABS: BASOPHILS # (AUTO) 0.1 10^3/uL (0.0-0.1); BASOPHILS % (AUTO) 0.8 %; EOSINOPHILS # (AUTO) 0.2 10^3/uL (0.0-0.7); EOSINOPHILS % (AUTO) 2.1 %; HCT - HEMATOCRIT 42.3 % (37.0-47.0); HGB - HEMOGLOBIN 13.6 g/dL (12.0-16.0); LYMPHOCYTES # (AUTO) 1.7 10^3/uL (1.5-3.5); LYMPHOCYTES % (AUTO) 18.3 %; MEAN CORPUSCULAR HEMOGLOBIN 31.9 pg (27.0-31.0); MEAN CORPUSCULAR HGB CONC 32.2 g/dL (32.0-36.0); MEAN CORPUSCULAR VOLUME 99.3 fL (81.0-99.0); MEAN PLATELET VOLUME 8.7 fL (7.9-10.8); MONOCYTES # (AUTO) 0.8 10^3/uL (0.0-1.0); MONOCYTES % (AUTO) 9.1 %; NEUTROPHILS # (AUTO) 6.3 10^3/uL (1.5-6.6); NEUTROPHILS % (AUTO) 69.5 %; PLT - PLATELET COUNT 264 10^3/uL (130-450); RED BLOOD COUNT 4.26 10^6/uL (4.20-5.40); RED CELL DISTRIBUTION WIDTH 15.6 % (12.0-15.0); WHITE BLOOD COUNT 9.1 x10^3/uL (4.8-10.8)
[2021-06-25 16:14] LABS: ALBUMIN/GLOBULIN RATIO 1.2 (1.0-2.2); BILIRUBIN,TOTAL 0.9 mg/dL (0.2-1.0); CALCIUM 9.5 mg/dL (8.5-10.3); CREATININE 0.7 mg/dL (0.4-1.0); POTASSIUM 3.6 mmol/L (3.5-5.0); TOTAL PROTEIN 7.4 g/dL (6.7-8.2)
--- NOTE | 2021-06-25 17:05 | ED Physician Documentation ---
History of Present Illness - Stated complaint Stated Complaint: FEMALE - Chief complaint Chief Complaint: Abd Pain - Additonal information Additional information: 66-year-old female who is a Latter day and has a longstanding history of dysfunctional uterine bleeding presents to the emergency department with persistent vaginal bleeding and shortness of air. She has been seen in this emergency department for similar last and mid March. At that time she was given some trans-Dot acid which slowed the bleeding. She ultimately went to surgery with Dr. Toscano on 15 April and had a D&C completed. She reports that after the D&C she had reduced bleeding but it did not stop. She was started on progesterone and recently had her dose increased on 01 June to 40 mg once daily Last pelvic ultrasound showed enlarged leiomyomatous uterus. With a thickened endometrium that was suspicious for an endometrial carcinoma. Patient denies any chest pain or syncope. She is a Latter day and declines all blood products. Past medical history includes atrial fibrillation for which she is on Xarelto Review of Systems Constitutional: denies: Fever, Myalgias Eyes: reports: Reviewed and negative Nose: reports: Reviewed and negative Throat: reports: Reviewed and negative Cardiac: reports: Reviewed and negative Respiratory: reports: Dyspnea. 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 - Present Medications Home Medications: Ambulatory Orders Medication Instructions Recorded Confirmed Atorvastatin [Lipitor] 40 mg PO DAILY 03/31/21 04/14/21 DULoxetine [Cymbalta] 40 mg PO DAILY 03/31/21 04/14/21 Furosemide [Lasix] 40 mg PO DAILY 03/31/21 04/14/21 Irbesartan [Avapro] 75 mg PO DAILY 03/31/21 04/14/21 Medroxyprogesterone Acetate 10 mg PO DAILY #30 tablet 03/31/21 04/14/21 [Provera] Metoprolol Succinate [Toprol Xl] 150 mg PO DAILY 03/31/21 04/14/21 Rivaroxaban [Xarelto] 20 mg PO DAILY 03/31/21 04/14/21 Aspirin [Aspirin EC] 81 mg PO DAILY 04/14/21 04/14/21 traMADol [Ultram] 50 mg PO Q6H PRN 04/14/21 04/14/21 Acetaminophen [Tylenol] 650 mg PO Q6H PRN #90 tablet 04/15/21 oxyCODONE [Roxicodone] 2.5 - 5 mg PO Q4H PRN #5 tablet 04/15/21 - Allergies Allergies/Adverse Reactions: Allergies Allergy/AdvReac Type Severity Reaction Status Date / Time atenolol Allergy cough Verified 06/25/21 15:25 lisinopril Allergy cough Verified 06/25/21 15:25 - Social History Does the pt smoke?: No Smoking Status: Never smoker Does the pt have substance abuse?: No PD ED PE EXPANDED - General General: Alert, No acute distress, Well developed/nourished - Cardiac Cardiac: Irregularly irregular, Radial strong equal, Pedal strong equal, Cap refill < 2 sec - Respiratory Respiratory: Clear to ausultation gianna. No: Distress, Labored - Abdomen Abdomen: Normal Bowel sounds. No: Tender to palpation (Abdominal exam limited by body habitus.) - Derm Derm: Normal color, Warm and dry. No: Rash - Extremities Extremities: Normal. No: Deformity, Tenderness - Neuro Neuro: Alert and Oriented X 3, CNII-XII intact - GCS Eye Opening: Spontaneous Motor: Obeys Commands Verbal: Oriented Total: 15 Results - Vitals Vitals: Vital Signs - 24 hr 06/25/21 06/25/21 15:22 17:14 Heart Rate 129 H 113 H Respiratory 18 22 Rate Blood Pressure 115/70 131/114 H O2 Saturation 98 97 Oxygen O2 Source Room air - EKG (time done) 1749 Rate: Rate (enter#) (109) Rhythm: Atrial fibrillation Intervals: No: Prolonged QT QRS: Normal Ischemia: Non specific changes Compare to prior EKG: Old EKG unavailable Computer interpretation: Agree with computer - Labs Labs: Laboratory Tests 06/25/21 06/25/21 06/25/21 15:49 15:49 15:49 WBC 9.1 RBC 4.26 Hgb 13.6 Hct 42.3 MCV 99.3 H MCH 31.9 H MCHC 32.2 RDW 15.6 H Plt Count 264 MPV 8.7 Neut # (Auto) 6.3 Lymph # (Auto) 1.7 Osborne # (Auto) 0.8 Eos # (Auto) 0.2 Baso # (Auto) 0.1 Absolute Nucleated RBC 0.00 Nucleated RBC % 0.0 Sodium 137 Potassium 3.6 Chloride 97 L Carbon Dioxide 26 Anion Gap 14.0 H BUN 14 Creatinine 0.7 Estimated GFR (MDRD) 83 L Glucose 125 H Calcium 9.5 Total Bilirubin 0.9 AST 37 ALT 27 Alkaline Phosphatase 46 Troponin I High Sens Total Protein 7.4 Albumin 4.0 Globulin 3.4 Albumin/Globulin Ratio 1.2 Lipase 39 Blood Type A POSITIVE 06/25/21 17:41 WBC RBC Hgb Hct MCV MCH MCHC RDW Plt Count MPV Neut # (Auto) Lymph # (Auto) Osborne # (Auto) Eos # (Auto) Baso # (Auto) Absolute Nucleated RBC Nucleated RBC % Sodium Potassium Chloride Carbon Dioxide Anion Gap BUN Creatinine Estimated GFR (MDRD) Glucose Calcium Total Bilirubin AST ALT Alkaline Phosphatase Troponin I High Sens 5.0 Total Protein Albumin Globulin Albumin/Globulin Ratio Lipase Blood Type - Rads (name of study) OB US Radiology: See rad report, Other (Markedly limited exam. Endometrium measures 11 to 13 mm. Ovaries were not identified. Uterine fibroids again noted.) PD MEDICAL DECISION MAKING - ED course Complexity details: reviewed results, re-evaluated patient, considered differential, d/w patient ED course: 66-year-old female who has a history of prolonged dysfunctional uterine bleeding presents the emergency department with worsening bleeding as well as some shortness of air and Feeling lightheaded. She was seen by OB today and advised to follow-up here in the ER. She does have a history of atrial fibrillation and is taking Xarelto. She has been referred to [facility] for consideration of a hysterectomy, but given the hx of Latter day, body habitus and the need to be anticoagulated secondary to atrial fib they felt she was too high risk for a hysterectomy. Today on presentation she appears very well and is not dyspneic room air saturations are 98%. She is noted to be in atrial fib the rate is anywhere from the 90s to the 110's. She denies chest pain or orthopnea. Screening hgb is 13 mg/dl This is markedly improved from recent. Otherwise her electrolytes are without worrisome findings. I did do an abdominal pelvic ultrasound which was limited secondary to body habitus. She does have a thickened endometrium. 190: I have spoken with Dr. Boone With PROFESSOR OF COMMUNICATION. She did come to the bedside and did a limited pelvic ultrasound. Given that the patient has postmenopausal bleeding And a normal hemogram they would recommend increasing the Provera to 20 mg 3 times daily. She is to follow-up with gynecology as soon as possible. Departure - Departure Disposition: Home, Self Care Clinical Impression: DUB (dysfunctional uterine bleeding), Anticoagulation adequate Condition: Stable Record reviewed to determine appropriate education?: Yes Comments: Vaishali you were seen today for concerns of abnormal uterine bleeding. You are most likely bleeding because of the fibroids in your uterus. However this is complicated because you are anticoagulated with your history of atrial fibrillation. Your blood count today is 13. Your hemoglobin remains very stable. Continue to take the iron. With the history of being Latter day as well as the need to remain anticoagulated your very high risk for surgery this is why [facility] was hesitant to perform a hysterectomy. You are seen today by our OB department. At this time we would like to increase your progesterone to 20 mg 3 times daily. Please schedule follow-up with OB as soon as possible. If you develop any fainting episodes, or severely short of breath, have a racing heart rate or feel that your symptoms are not improving then please return immediately to the ER for second evaluation.
--- NOTE | 2021-06-25 19:29 | Ultrasound Report ---
PROCEDURE: Pelvic w/Transvag+Doppler Comp INDICATIONS: vaginal bleeding; hx of d c TECHNIQUE: Real-time scanning was performed of the pelvic organs, with image documentation. Additional endovagi nal scanning was necessary due to incomplete visualization of the adnexal and endometrial structures by transabdominal scanning. COMPARISON: 03/31/2021 FINDINGS: No pathologic free abdominal or pelvic fluid. Uterus: Uterus is enlarged in size at 11.5 x 5.0 x 7.9 cm. Uterine volume measures 239 mL. Heterogen eous uterine echotexture with numerous fibroids. There is a posterior subserosal fibroid measuring 1. 4 x 2.0 x 1.3 cm. This is relatively stable in size compared to previous evaluations. The endometrium measures 13 mm in combined thickness. Multiple nabothian cyst noted. Ovaries: Ovaries were not able to be imaged secondary to patient's inability to be positioned adequa tely for transvaginal imaging of the ovaries. IMPRESSION: 1. Redemonstration of enlarged, heterogeneous leiomyomatous uterus with stable posterior subserosal f ibroid measuring up to 2.0 cm on today's study. 2. Heterogeneous, abnormally thickened endometrium. No focal endometrial mass lesions identified. In this postmenopausal patient, further evaluation with gynecologic consultation for possible endometria l biopsy is recommended. 3. Limited evaluation secondary to patient scanning characteristics. The ovaries were not able to be assessed. Reviewed by: Ahsan Cisneros MD on 06/25/2021 7:27 PM PST Approved by: Ahsan Cisneros MD on 06/25/2021 7:27 PM PST Station ID: [id number]
--- NOTE | 2021-06-25 20:09 | CONSULTATION NOTE ---
Referring Provider Consult Date: 06/25/21 Chief Complaint - Chief Complaint Chief Complaint: vaginal bleeding History of Present Illness - History of Present Illness HPI Comment/Other: Patient present to the ED with complaints of vaginal bleeding. She reports soaking 5 pad today and reports passage of clots. She has a known history of postmenopausal bleeding. Her medical history is complicated by atrial fibri llation for which she is on anticoagulation. She is followed by Dr. Toscano. She has had a d&C which showed benign polyps. 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 - Family & Social History Living Situation: With family - POLST Patient has POLST: No Meds/Allgy - Home Medications Home Medications: Ambulatory Orders Medication Instructions Recorded Confirmed Atorvastatin [Lipitor] 40 mg PO DAILY 03/31/21 04/14/21 DULoxetine [Cymbalta] 40 mg PO DAILY 03/31/21 04/14/21 Furosemide [Lasix] 40 mg PO DAILY 03/31/21 04/14/21 Irbesartan [Avapro] 75 mg PO DAILY 03/31/21 04/14/21 Medroxyprogesterone Acetate 10 mg PO DAILY #30 tablet 03/31/21 04/14/21 [Provera] Metoprolol Succinate [Toprol Xl] 150 mg PO DAILY 03/31/21 04/14/21 Rivaroxaban [Xarelto] 20 mg PO DAILY 03/31/21 04/14/21 Aspirin [Aspirin EC] 81 mg PO DAILY 04/14/21 04/14/21 traMADol [Ultram] 50 mg PO Q6H PRN 04/14/21 04/14/21 Acetaminophen [Tylenol] 650 mg PO Q6H PRN #90 tablet 04/15/21 oxyCODONE [Roxicodone] 2.5 - 5 mg PO Q4H PRN #5 tablet 04/15/21 - Allergies Allergies/Adverse Reactions: Allergies Allergy/AdvReac Type Severity Reaction Status Date / Time atenolol Allergy cough Verified 06/25/21 15:25 lisinopril Allergy cough Verified 06/25/21 15:25 Exam - Vital Signs Reviewed Vital Signs: Yes Vital Signs: Vital Signs x48h Pulse Resp BP Pulse Ox 06/25/21 17:14 113 H 22 131/114 H 97 06/25/21 15:22 129 H 18 115/70 98 - Physical Exam General Appearance: positive: No acute distress, Other (obese) Abdomen: positive: Non-tender Comments/Other: SSE with approx 20 cc of clot in the vaginal vault no active cervical bleeding noted. Conclusion/Plan - Lab Results Lab results reviewed: Yes Fish Bones: 06/25/21 15:49 06/25/21 15:49 - Other Other Results/Comments: 66 y/o with medical history of afib on xeralto presenting with vaginal bleeding. The patient was discussed with Dr. Toscano and history reviewed. She has been deem a poor surgical candidate by [facility] per Dr. Toscano's discussions with them. She has multiple commodities, is on anticoagulation and declines blood products. #Postmenopausal bleeding- hemoglobin stable. Exam without evidence of hemorrhage. Previously benign biopsy. Recommend provera 20 mg TID for 7 days for acute bleeding. F/u with gynecology [facility].
[2021-06-25 20:44] VITALS: BP 136/90
== END 2021-06-25 21:23 | disposition home or self-care (01) ==
LOC: ED 15:13
DX: N95.0 Postmenopausal bleeding (principal); D25.2 Subserosal leiomyoma of uterus; I48.91 Unspecified atrial fibrillation; Z79.01 Long term (current) use of anticoagulants
CPT/HCPCS: 36415; 80053; 83690; 84484; 85025; 86900; 86901; 93005; 93975; 99283; 99284

== ENCOUNTER 2021-08-23 09:06 | Outpatient (CLI) | payer MEDICARE, OTHER ==
[2021-08-23 15:41] LABS: % IRON SATURATION 18 % (20-50); ALT ALANINE AMINOTRANSFERASE 32 IU/L (10-60); AST ASPARTATE AMINOTRANSFERASE 36 IU/L (10-42); CHOL/HDL RATIO 3.3 (<4.4); CHOLESTEROL 119 mg/dL; CK- CREATINE KINASE 52 IU/L (22-269); HDL CHOLESTEROL 36 mg/dL; IRON 79 ug/dL (28-170); LDL CHOLESTEROL,CALCULATED 50 mg/dL; LDL/HDL RATIO 1.4 (<4.4); TOTAL IRON BINDING CAPACITY 433 ug/dL (250-450); TRANSFERRIN 309 mg/dL (192-382); TRIGLYCERIDES 167 mg/dL; VLDL CHOLESTEROL 33 mg/dL
== END 2021-08-23 09:07 | disposition home or self-care (01) ==
LOC: LAB.S 09:06
PROVIDERS: ATTEND Internal Medicine Cardiovascular Disease
DX: E78.5 Hyperlipidemia, unspecified (principal); D50.0 Iron deficiency anemia secondary to blood loss (chronic); Z13.1 Encounter for screening for diabetes mellitus
CPT/HCPCS: 36415; 80061; 81599; 82550; 82728; 83036; 83540; 83721; 84450; 84460; 84466; 85025

== ENCOUNTER 2021-08-25 15:32 | Outpatient (CLI) | payer MEDICARE, OTHER | END 2021-08-25 15:33 | disposition home or self-care (01) | LOC: LAB 15:32 | PROVIDERS: ATTEND Internal Medicine Cardiovascular Disease | DX: Z53.9 Procedure and treatment not carried out, unspecified reason (principal) ==

== ENCOUNTER 2021-08-25 15:41 | Outpatient (CLI) | payer MEDICARE, OTHER ==
[2021-08-25 20:35] LABS: HCT - HEMATOCRIT 43.8 % (37.0-47.0); HGB - HEMOGLOBIN 14.4 g/dL (12.0-16.0); MEAN CORPUSCULAR HEMOGLOBIN 33.2 pg (27.0-31.0); MEAN CORPUSCULAR HGB CONC 32.9 g/dL (32.0-36.0); MEAN CORPUSCULAR VOLUME 100.9 fL (81.0-99.0); RED BLOOD COUNT 4.34 10^6/uL (4.20-5.40); RED CELL DISTRIBUTION WIDTH 15.4 % (12.0-15.0); WHITE BLOOD COUNT 7.7 x10^3/uL (4.8-10.8)
[2021-08-25 23:33] LABS: ESTIMATED AVERAGE GLUCOSE 120 mg/dL (70-100); HEMOGLOBIN A1c% 5.8 % (4.27-6.07)
== END 2021-08-25 15:42 | disposition home or self-care (01) ==
LOC: LAB.S 15:41
PROVIDERS: ATTEND Registered Nurse
DX: D50.0 Iron deficiency anemia secondary to blood loss (chronic) (principal); Z13.1 Encounter for screening for diabetes mellitus
CPT/HCPCS: 36415; 83036; 85025; 85027

== ENCOUNTER 2021-12-05 08:00 | Outpatient (CLI) | payer MEDICARE, OTHER ==
--- NOTE | 2021-12-05 17:06 | XRAY Report ---
PROCEDURE: Foot 3 View RT INDICATIONS: RIGHT FOOT PAIN TECHNIQUE: 3 views of the foot were acquired. COMPARISON: None FINDINGS: Bones: No fractures or dislocations. No suspicious bony lesions. Large plantar calcaneal bone spur. Mild midfoot osteoarthritis. Soft tissues: No tibiotalar joint effusion. Achilles tendon appears normal. IMPRESSION: Calcaneal bone spur. Mild midfoot osteoarthritis. Reviewed by: Chitra Melendrez MD, PhD on 12/05/2021 5:05 PM PDT Approved by: Chitra Melendrez MD, PhD on 12/05/2021 5:05 PM PDT Station ID: [id number]
== END 2021-12-05 23:59 | disposition home or self-care (01) ==
LOC: DI.S 08:00
PROVIDERS: ATTEND Emergency Medicine
DX: M19.071 Primary osteoarthritis, right ankle and foot (principal); M77.31 Calcaneal spur, right foot

== ENCOUNTER 2022-02-13 13:54 | Outpatient (CLI) | payer MEDICARE, OTHER ==
--- NOTE | 2022-02-13 17:10 | XRAY Report ---
PROCEDURE: Ankle 3 View LT INDICATIONS: LEFT ANKLE XR TECHNIQUE: 3 views of the ankle were acquired. COMPARISON: None FINDINGS: Bones: No fractures or dislocations. Ankle mortise is normally aligned. No suspicious bony lesions . Large plantar calcaneal bone spur. Tibiotalar and midfoot osteoarthritis. Soft tissues: No tibiotalar joint effusion. Achilles tendon appears normal. Nonspecific soft tissu e swelling noted to be posttraumatic or infectious IMPRESSION: No fracture. No acute osseous lesion. If symptoms and/or clinical concern for pathology persists, fur ther assessment with repeat plain film radiographs (7-10 days) or advanced imaging (CT, MR, bone scan ) should be considered. Reviewed by: Chitra Melendrez MD, PhD on 02/13/2022 5:09 PM PDT Approved by: Chitra Melendrez MD, PhD on 02/13/2022 5:09 PM PDT Station ID: [id number]
== END 2022-02-13 13:55 | disposition home or self-care (01) ==
LOC: DI.S 13:54
PROVIDERS: ATTEND Nurse Practitioner Family
DX: M25.572 Pain in left ankle and joints of left foot (principal)

== ENCOUNTER 2022-05-07 08:00 | Outpatient (CLI) | payer MEDICARE, OTHER ==
--- NOTE | 2022-05-07 15:20 | XRAY Report ---
PROCEDURE: Knee 4 View BILAT INDICATIONS: BILAT KNEE PAIN TECHNIQUE: 4 views of both knees were acquired. COMPARISON: Right knee radiographs 09/02/2015. FINDINGS: Bones: No fractures or dislocations. No suspicious bony lesions. Right knee: Severe patellofemoral compartment narrowing with spurring. Severe medial, mild lateral co mpartment narrowing with spurring. Left knee: Severe patellofemoral compartment narrowing with spurring. Severe medial, mild lateral com partment narrowing with spurring. Soft tissues: No joint effusion. No suspicious soft tissue calcifications. IMPRESSION: Degenerative changes of both knees. Reviewed by: Travis Dao MD on 05/07/2022 3:19 PM PDT Approved by: Travis Dao MD on 05/07/2022 3:19 PM PDT Station ID: [id number]
== END 2022-05-07 23:59 | disposition home or self-care (01) ==
LOC: DI.WOS 08:00
PROVIDERS: ATTEND Physician Assistant
DX: M17.0 Bilateral primary osteoarthritis of knee (principal)

== ENCOUNTER 2022-05-11 08:00 | Outpatient (CLI) | payer MEDICARE, OTHER ==
--- NOTE | 2022-05-11 16:24 | XRAY Report ---
PROCEDURE: Shoulder 3 View LT INDICATIONS: LEFT SHOULDER PAIN TECHNIQUE: 4 views of the shoulder were acquired. COMPARISON: None. FINDINGS: Bones: No fractures or dislocations. No suspicious bony lesions. Visualized ribs appear intact. M oderate periarticular osteophyte formation at the, clavicular and glenohumeral joints. Soft tissues: No suspicious soft tissue calcifications. Rounded density projects over the scapula, suggestive of an intra-articular loose body. IMPRESSION: 1. Osteoarthritis. 2. Findings suggestive of intra-articular loose bodies. This could be further assessed with MRI arthr ography, if clinically indicated. 3. No acute fracture. No osseous lesion. If symptoms and/or clinical suspicion for pathology continue , further assessment with repeat plain films, or advanced imaging (e.g., CT, MRI, or bone scan) is re commended for further assessment. Reviewed by: Rosa Mccabe MD on 05/11/2022 4:23 PM PDT Approved by: Rosa Mccabe MD on 05/11/2022 4:23 PM PDT Station ID: [id number]
== END 2022-05-11 23:59 | disposition home or self-care (01) ==
LOC: DI.WOS 08:00
PROVIDERS: ATTEND Physician Assistant
DX: M19.012 Primary osteoarthritis, left shoulder (principal)

== ENCOUNTER 2022-08-13 07:19 | Outpatient (CLI) | payer MEDICARE, OTHER | END 2022-08-13 07:20 | disposition EMS.NT | LOC: EMS 07:19 | DX: Z03.89 Encounter for observation for other suspected diseases and conditions ruled out (principal) ==

== ENCOUNTER 2022-08-24 12:50 | Outpatient (CLI) | payer MEDICARE, OTHER ==
[2022-08-24 18:27] VITALS: BP 134/72
--- NOTE | 2022-08-24 18:27 | SLEEP CARE CONSULTATION ---
Information from patient questionnaire entered by Soumya Castillo. I have reviewed and concur with the information entered by Soumya Castillo. This document represents the service I personally performed and the decisions made by me, Darci Rodgers MD, [facility]. History of Present Illness Service Date and Time: 08/24/2022 1250 Previous diagnosis: Very Severe, Obstructive Sleep Apnea-Hypopnea Syndrome AHI: 81.4 Reason for follow up: annual (LAST SEEN 10/2020) Equipment type: CPAP (DREAM STATION) Equipment obtained from: [employer] ([place]) [facility]: Yes [facility] Type of Sleep Study: Polysomnography HPI additional information: Ms. Toscano returned today for follow up of nasal CPAP therapy. She was diagnosed to have very severe obstructive sleep apnea-hypopnea syndrome. The patient said she stopped using her [employer] DreamStation autoCPAP two years ago when the recall was announced. She said she resorted to sleeping in a recliner. She now has a DreamStation 2 that replaces her old one. She has not started using it yet. She has not gotten any supplies for a while. Sleep Study - Results Type of Sleep Study: Polysomnography Prior sleep studies: Yes [facility] and [facility] Subject[facility] Initial Colbert Sleepiness Scale score: 2 (in 2019) Current Colbert Sleepiness Scale score: 3 (08/24/22) Allergies and Home Medications Drug allergies reviewed: Yes Home medication list reviewed: Yes Allergy and home medication list: Allergies atenolol Allergy (Verified 06/25/21 15:25) cough lisinopril Allergy (Verified 06/25/21 15:25) cough Review of Systems Review of systems same as previous: Yes Physical Exam Vital signs obtained and entered by: SOUMYA Ramey MA Blood Pressure: 134/72 (LEFT WRIST) Cuff size: regular Heart Rate: 103 O2 Saturation: 93 Height: 5 ft 7 in Weight: 398 lb Body Mass Index: 62.3 BMI Classification: Morbidly Obese Impression and Plan IMPRESSION: 1. Obstructive Sleep Apnea-Hypopnea Syndrome, very severe (AHI was 81.[address] [facility]) with the patient not using her CPAP. She does have the new [employer] DreamStation 2 autoCPAP. Because she has lost some weight and is sleeping in a recliner, I will order a sleep study to confirm the diagnosis. The patient would like to have a home sleep apnea test (HSAT) which I think is a good idea because she can sleep in her recliner as she normally does. PLAN: 1. A home sleep apnea test (HSAT) with the patient sleeping in her recliner. 2. Try to lose weight 3. Return for follow up after the test. Counseling Topics: Weight control Follow up with Sleep Care in: 1-2 months Visit Type: In Office Time Spent with Patient (minutes): 15 Provider Statement: I spent 100% of the Face to Face Visit with the patient with greater than 50% spent counseling the patient and coordination of care.
== END 2022-08-24 12:51 | disposition home or self-care (01) ==
LOC: SC 12:50
PROVIDERS: ATTEND Internal Medicine Pulmonary Disease
DX: G47.33 Obstructive sleep apnea (adult) (pediatric) (principal); E66.01 Morbid (severe) obesity due to excess calories; Z68.44 Body mass index [BMI] 60.0-69.9, adult
CPT/HCPCS: 99212; G0463

== ENCOUNTER 2022-09-10 14:18 | Outpatient (CLI) | payer MEDICARE, OTHER | END 2022-09-10 14:19 | disposition home or self-care (01) | LOC: SC 14:18 | PROVIDERS: ATTEND Internal Medicine Pulmonary Disease | DX: G47.33 Obstructive sleep apnea (adult) (pediatric) (principal); R09.02 Hypoxemia; Z68.44 Body mass index [BMI] 60.0-69.9, adult | CPT/HCPCS: G0399 ×2; 95806 ==

== ENCOUNTER 2022-11-02 14:27 | Outpatient (CLI) | payer MEDICARE, OTHER ==
[2022-11-02 19:53] LABS: BASOPHILS % (AUTO) 0.6 %; EOSINOPHILS # (AUTO) 0.2 10^3/uL (0.0-0.7); EOSINOPHILS % (AUTO) 2.5 %; HCT - HEMATOCRIT 45.4 % (37.0-47.0); LYMPHOCYTES % (AUTO) 28.1 %; MEAN CORPUSCULAR HEMOGLOBIN 32.8 pg (27.0-31.0); MEAN CORPUSCULAR VOLUME 99.1 fL (81.0-99.0); MONOCYTES # (AUTO) 0.7 10^3/uL (0.0-1.0); MONOCYTES % (AUTO) 9.9 %; NEUTROPHILS # (AUTO) 4.2 10^3/uL (1.5-6.6); NEUTROPHILS % (AUTO) 58.6 %; PLT - PLATELET COUNT 257 10^3/uL (130-450); RED BLOOD COUNT 4.58 10^6/uL (4.20-5.40); RED CELL DISTRIBUTION WIDTH 12.7 % (12.0-15.0); WHITE BLOOD COUNT 7.1 x10^3/uL (4.8-10.8)
[2022-11-04 07:10] LABS: VITAMIN D 25-HYDROXY 90.6 ng/mL (30.0-100.0)
[2022-11-04 12:09] LABS: CALCIUM IONIZED SERUM 4.7 mg/dL (4.5-5.6)
== END 2022-11-02 14:28 | disposition home or self-care (01) ==
LOC: LAB.S 14:27
PROVIDERS: ATTEND Registered Nurse
DX: D75.1 Secondary polycythemia (principal); E83.52 Hypercalcemia
CPT/HCPCS: 36415; 82306; 82330; 82668; 83970; 85025

== ENCOUNTER 2022-11-02 14:39 | Outpatient (CLI) | payer MEDICARE, OTHER ==
--- NOTE | 2022-11-02 12:02 | SLEEP CARE CONSULTATION ---
Information from patient questionnaire entered by Pamela Castillo. I have reviewed and concur with the information entered by Pamela Castillo. This document represents the service I personally performed and the decisions made by me, Darci Rodgers MD, [facility]. History of Present Illness Service Date and Time: 11/02/2022 1100 Initial Roland Sleepiness Scale score: 2 (in 2019) Current Roland Sleepiness Scale score: 11 (11/02/22) Additional HPI information: Ms. Toscano returned for follow up of the home sleep apnea test (HSAT) she had on 09/10/2022. The test showed mild obstructive sleep apnea-hypopnea with an AHI of 12.3/hr and vijay SaO2 of 60%. During the study, the patient had 38 apneas (38 obstructive, 0 central, 0 mixed) and 73 hypopneas. The longest episode lasted 99.0 seconds. The patient only slept supine during this study (supine AHI was 12.3 and non-supine, 0.00). Hypoxemia was severe, with the lowest oxygen saturation of 60 % and 72.4 minutes with SaO2 under 90%. Baseline oxygen saturation was low-normal (Average oxygen saturation was 90%). The patient was informed of these findings. I explained to her that her home sleep apnea test showed mild obstructive sleep apnea-hypopnea with her sleeping in the recliner. Sleep Study - Results Type of Sleep Study: Home sleep study (COMPLETED 09/10/22) Prior sleep studies: Yes Year and Where: 10+ years ago, [facility] Allergies and Home Medications Drug allergies reviewed: Yes Home medication list reviewed: Yes Allergy and home medication list: Allergies atenolol Allergy (Verified 06/25/21 15:25) cough lisinopril Allergy (Verified 06/25/21 15:25) cough Physical Exam Vital signs obtained and entered by: PAMELA Ramey MA Height: 5 ft 6.5 in (per pt) Weight: 350 lb (per pt) Body Mass Index: 55.6 BMI Classification: Morbidly Obese Impression and Plan IMPRESSION: 1. Obstructive Sleep Apnea-Hypopnea Syndrome, mild (was very severe). The patient would like to not use the CPAP at this time because there is no noticeable improvement. She sleeps fine in the recliner. She may decide to go back and sleep in her bed later. If she does that, I recommend she use the CPAP again. PLAN: 1. Use CPAP as needed. 2. Attempt to lose weight. 3. Return for a follow up on as needed basis. Follow up with Sleep Care in: as needed Visit Type: Telehealth Phone Patient Location: Home Location of Provider: Office Time Spent with Patient (minutes): 15 Provider Statement: I spent 100% of the Telehealth Phone Call with the patient with greater than 50% spent counseling the patient and coordination of care.
== END 2022-11-02 14:40 | disposition home or self-care (01) ==
LOC: SC 14:39
PROVIDERS: ATTEND Internal Medicine Pulmonary Disease
DX: G47.33 Obstructive sleep apnea (adult) (pediatric) (principal); E66.01 Morbid (severe) obesity due to excess calories; Z68.43 Body mass index [BMI] 50.0-59.9, adult; E83.52 Hypercalcemia; D75.1 Secondary polycythemia
CPT/HCPCS: 36415; 82306; 82330; 82668; 83970; 85025; G2012

== ENCOUNTER 2022-11-10 15:19 | Outpatient (CLI) | payer MEDICARE, OTHER ==
--- NOTE | 2022-11-10 16:10 | XRAY Report ---
PROCEDURE: Shoulder 3 View RT INDICATIONS: RIGHT SHOULDER PAIN TECHNIQUE: 4 views of the shoulder were acquired. COMPARISON: None. FINDINGS: Bones: No fractures or dislocations. No suspicious bony lesions. Visualized ribs appear intact. Mo derate acromioclavicular joint and glenohumeral joint osteoarthritis. Soft tissues: No suspicious soft tissue calcifications. IMPRESSION: Moderate right acromioclavicular joint and glenohumeral joint osteoarthritis. Reviewed by: Chitra Melendrez MD, PhD on 11/10/2022 4:08 PM PDT Approved by: Chitra Melendrez MD, PhD on 11/10/2022 4:08 PM PDT Station ID: [id number]
== END 2022-11-10 15:20 | disposition home or self-care (01) ==
LOC: DI.WOS 15:19
PROVIDERS: ATTEND Physician Assistant Surgical
DX: M19.011 Primary osteoarthritis, right shoulder (principal)

== ENCOUNTER 2022-11-16 12:36 | Outpatient (CLI) | payer MEDICARE, OTHER ==
[~2022-11-16 12:36] MED LIST changes: -BUFFERED LIDOCAINE 10 ML SYRINGE ONE; +BUPIVACAINE 0.5% PF 10 ML VIAL ONE; +LIDOCAINE-MPF 1% 5 ML VIAL ONE; -ROPIVACAINE 0.5% PF 20 ML AMPULE ONE; +iohexoL-240 10 ML VIAL IVP ONE
[2022-11-16] MEDS ORDERED: iohexoL-240 10 ML VIAL IVP ONE (14:13)
[2022-11-16] MEDS ORDERED: BUPIVACAINE 0.5% PF 10 ML VIAL IM ONE (14:15)
[2022-11-16] MEDS ORDERED: TRIAMCINOLONE 40 MG/ML VIAL IM ONE (14:16)
[2022-11-16] MEDS ORDERED: LIDOCAINE-MPF 1% 5 ML VIAL TD ONE (14:17)
--- NOTE | 2022-11-16 15:11 | XRAY Report ---
PROCEDURE: Inj/Aspiration Major Joint INDICATIONS: PRIMARY OSTEOARTHRITIS RIGHT SHOULDER CONTRAST: Intra-articular FLUORO TIME: 0.1 TECHNIQUE: The indications, alternatives, benefits, risks, and complications of the procedure were explained to the patient. Written informed consent was obtained and placed in the chart. The patient was placed in an appropriate position on the fluoroscopy table, and a site was chosen for percutaneous access un christina fluoroscopic guidance. Local anesthetic was administered using a 1% lidocaine solution. A hypod ermic or spinal needle was then used to access the symptomatic joint. Intra-articular location of th e needle tip was confirmed by injecting a small amount of contrast, followed by steroid administratio n. The needle was then withdrawn, and a bandage applied to the puncture site. FINDINGS: Joint injected: Right shoulder Medications injected: 5 mL of 40 mg/mL Kenalog and 0.5% Ropivacaine mixture. Complications: None. IMPRESSION: Successful fluoroscopically guided administration of steroid and anaesthetic solution into the right shoulder joint. Reviewed by: Isaac Roman MD on 11/16/2022 3:10 PM PDT Approved by: Isaac Roman MD on 11/16/2022 3:10 PM PDT Station ID: [id number]
== END 2022-11-16 12:37 | disposition home or self-care (01) ==
LOC: DI 12:36
PROVIDERS: ATTEND Physician Assistant Surgical
DX: M19.011 Primary osteoarthritis, right shoulder (principal)
CPT/HCPCS: 20610; 77002; Q9966

== ENCOUNTER 2022-11-26 11:15 | Outpatient (CLI) | payer MEDICARE, OTHER | END 2022-11-26 11:30 | disposition home or self-care (01) | LOC: LAB.N 11:15 | PROVIDERS: ATTEND Registered Nurse | DX: R30.0 Dysuria (principal) | CPT/HCPCS: 87077; 87086; 87181 ==

== ENCOUNTER 2023-03-29 02:45 | Outpatient (CLI) | payer MEDICARE, OTHER | END 2023-03-29 23:59 | disposition critical access hospital (66) | LOC: EMS 02:45 | DX: S01.411A Laceration without foreign body of right cheek and temporomandibular area, initial encounter (principal); S00.11XA Contusion of right eyelid and periocular area, initial encounter; W18.12XA Fall from or off toilet with subsequent striking against object, initial encounter; Y92.002 Bathroom of unspecified non-institutional (private) residence as the place of occurrence of the external cause; Z79.01 Long term (current) use of anticoagulants | CPT/HCPCS: A0425; A0429 ==

== ENCOUNTER 2023-03-29 03:15 | Emergency (ER) | payer MEDICARE, OTHER ==
--- OUTSIDE RECORDS SUMMARY | 2023-03-29 03:40 | EXTERNAL MEDICAL SUMMARY RPT | Continuity of Care Document ---
Author Name Unknown Address [address] [place] [address] Phone Organization [place] Address [address] [place] [address] Phone Problems date description facility 2023-01-28 12:05 Other specified arthritis, [facility] 2023-01-28 12:10 Other specified arthritis, [facility] 2023-01-28 12:57 Other specified arthritis, [facility] Results/Labs test date facility value unit notes
--- NOTE | 2023-03-29 06:10 | ED Physician Documentation ---
History of Present Illness - Stated complaint Stated Complaint: GLF - Chief complaint Chief Complaint: Laceration - History obtained from History obtained from: Patient, EMS - Additonal information Additional information: The pt is [facility] for GLF and facial/head injury at home. She states she had "6 oz vodka" to drink tonight, but that she didn't feel drunk. She was turning to pull her pants down and sit on the toilet when she lost her balance and fell forward, hitting her face on the corner of the shower. No LOC. No other injuries. She is on Xarelto. No neck pain. 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 ANODIZING: Other - Present Medications Home Medications: Ambulatory Orders Medication Instructions Recorded Confirmed Atorvastatin [Lipitor] 40 mg PO DAILY 03/31/21 03/29/23 DULoxetine [Cymbalta] 40 mg PO DAILY 03/31/21 03/29/23 Furosemide [Lasix] 20 mg PO DAILY 03/31/21 03/29/23 Metoprolol Succinate [Toprol Xl] 150 mg PO DAILY 03/31/21 03/29/23 Rivaroxaban [Xarelto] 20 mg PO DAILY 03/31/21 03/29/23 metFORMIN [Glucophage] See Rx Instructions .ROUTE .COMPLEX 08/24/22 03/29/23 Amox/Clav 875/125 [Augmentin] 1 each PO Q12H #20 tablet 03/29/23 HYDROcod/ACETAM 5/325 [Gary 5/325] 1 - 2 tablet PO Q6H PRN #14 tablet 03/29/23 - Allergies Allergies/Adverse Reactions: Allergies Allergy/AdvReac Type Severity Reaction Status Date / Time atenolol Allergy cough Verified 03/29/23 03:25 bacitracin Allergy Unknown Verified 03/29/23 05:01 [From Neosporin ([id number])] lisinopril Allergy cough Verified 03/29/23 03:25 neomycin Allergy Unknown Verified 03/29/23 05:01 [From Neosporin ([id number])] polymyxin B Allergy Unknown Verified 03/29/23 05:01 [From Neosporin ([id number])] - Social History Does the pt smoke?: No Smoking Status: Never smoker Does the pt drink ETOH?: No Does the pt have substance abuse?: No - Immunizations Immunizations are current?: Yes - POLST Patient has POLST: No PD ED PE NORMAL - Vitals Vital signs reviewed: Yes - General General: Alert and oriented X 3, No acute distress, Well developed/nourished - HEENT HEENT: PERRL, Moist mucous membranes, Other (R periorbital contusion, mod. edema, no facial deformity. 2.5 cm lac over inf orb rim. EOMI except upward gaze mildly puentes secondary to R eye pain) - Neck Neck: Supple, no meningeal sign, No bony TTP - Cardiac Cardiac: RRR, No murmur - Respiratory Respiratory: Clear bilaterally - Abdomen Abdomen: Normal bowel sounds, Soft, Non tender, Non distended - Derm Derm: Warm and dry - Extremities Extremities: No deformity - Neuro Neuro: Alert and oriented X 3 - Psych Psych: Normal mood, Normal affect Results - Vitals Vitals: Oxygen O2 Source Room air - Rads (name of study) CT head Relevant Findings:: Final report received, See rad report (NAD) CT face Relevant Findings:: Final report received, See rad report (Inf and med orbital wall fx with entrapment of EOM and fat. Opacification of R maxillary sinus.) Procedures - Laceration (location) R face Length in cm: 2.5 Wound type: Linear, Into subcut fat, Clean Neurovascular status: Sensory intact, Motor intact, Vascular intact Anesthesia: Lidocaine 1% Wound preparation: Hibiclens, Irrigated copiously NS, Wound explored, To the base Skin layer closure: Nylon, Interrupted, Size #-0 - enter number (5.0), Sutures - enter # (6) Other: Patient tolerated well, No complications, Neurovascular intact, Dressing applied, Tetanus UTD PD Medical Decision Making - ED course Complexity details: reviewed results, re-evaluated patient, considered differential, d/w patient, d/w family, d/w strategic consultant ED course: The pt was found to have orbital wall fractures with demonstrated clinically and on diagnostic imaging. IOPs averaged 17 and 18 with 10 taps each with the Tonopen. I started the pt on abx and discussed the case with Dr. Manrique of ophthalmology and Dr. Arana of Craniofacial Surgery, both of [facility]. Ultimately, it was felt pt did not need transfer, but that they would like to follow her up urgently. The Transfer [facility] took the pt's contact information, and stated they would have the clinic call to set up an appointment. I discussed this with the pt and her family, and they were agreeable to the plan. I have prescribed antibiotics and analgesia. We have discussed wound care at home and the usual indications for return. Departure - Departure Disposition: Home, Self Care Clinical Impression: Orbital floor (blow-out) closed fracture, Laceration Medial orbital wall fracture Qualifiers: Encounter type: initial encounter Fracture type: closed Laterality: right Qualified Code(s): S02.831A - Fracture of medial orbital wall, right side, initial encounter for closed fracture Condition: Stable Instructions: ED Fx Face, ED Laceration Facial Sutr Tape Prescriptions: Amox/Clav 875/125 [Augmentin] 1 each PO Q12H #20 tablet HYDROcod/ACETAM 5/325 [Gary 5/325] 1 - 2 tablet PO Q6H PRN #14 tablet PRN Reason: Pain Comments: Your case was discussed with both Dr. Manrique of ophthalmology and Dr. Arana of craniofacial surgery at [facility]. They reviewed your CT scans, as well as your story and the findings on clinical exam, and they do not feel that you need emergent surgery at this time. You may not need surgery at all, but they would like to see you in person in the clinic and determine the best course of action with regard to your injuries. [facility]'s craniofacial/oculoplastics clinic will be calling you in the next day or two to set up a follow-up appointment. In the meantime, Dr. Arana has requested the following: Please use ice and pain medication as needed for discomfort. You should sleep with the head of the bed elevated to about 45 degrees. Please hold your Xarelto for at least 48 hours but ideally, until you are seen in their clinic, just in case she needs surgery. You should use artificial tears if you are having dry eyes. Ice packs can also be helpful for comfort and swelling. You have been given your first dose of antibiotics here, and a prescription for the same has been electronically transmitted to the [facility] in [place], your pharmacy of choice on record. Forms: PCP List Discharge Date/Time: 03/29/23 07:44
[2023-03-29] MEDS ORDERED: AMOX/CLAV 875 MG/125 MG TABLET PO STA (07:15)
[2023-03-29 07:38] VITALS: BP 108/80; O2SAT 97
--- NOTE | 2023-03-29 08:14 | CT Report ---
PROCEDURE: HEAD WO INDICATIONS: fall/head trauma/xarelto TECHNIQUE: Noncontrast 4.5 mm thick angled axial sections acquired from the foramen magnum to the vertex. For r adiation dose reduction, the following was used: automated exposure control, adjustment of mA and/or kV according to patient size. COMPARISON: None. FINDINGS: Image quality: Excellent. CSF spaces: Basal cisterns are patent. No extra-axial fluid collections. Ventricles are normal in size and shape. Brain: No midline shift. No intracranial masses or hemorrhage. Huber-white matter interface is norm al. Skull and face: Right orbital fracture and right facial injury. Please see separate facial bone CT report. Sinuses: Visualized sinuses and mastoids are clear. IMPRESSION: 1. No acute intracranial abnormality. 2. Right orbital fracture and right facial injury. Please see separate facial bone CT report. Findings are concordant with preliminary interpretation provided by [facility]. Reviewed by: Ethan Bailey MD on 03/29/2023 8:12 AM PDT Approved by: Ethan Bailey MD on 03/29/2023 8:12 AM PDT Station ID: [id number]
--- NOTE | 2023-03-29 08:19 | CT Report ---
PROCEDURE: MAXILLOFACIAL WO INDICATIONS: fall/facial trauma TECHNIQUE: Noncontrast 1.5 mm thick axial images acquired from the mandible through the frontal sinuses, with co malcolm and sagittal reformatting. For radiation dose reduction, the following was used: automated ex posure control, adjustment of mA and/or kV according to patient size. COMPARISON: Head CT, 03/29/2023. FINDINGS: Image quality: Excellent. Bones and teeth: There is a comminuted right orbital floor fracture with inferior displacement of fr acture fragments. In addition, there is a displaced fracture of the medial wall of the right orbit. Inferiorly displaced fracture fragment of the right orbital floor/maxillary sinus roof is seen. Nasa l bones and septum are intact. Visualized portions of the mandible demonstrate no fractures or sublu xation. Zygomatic arches are intact. Pterygoid plates are intact. Visualized portions of the skull base and auditory canals are intact. Sinuses: There is an air-fluid level in the right maxillary sinus consistent with a tumor. Mastoid a ir cells are aerated. Soft tissues: No edema, masses, or fluid collections. No enlarged lymph nodes. No soft tissue lace rations or debris. Vascular: Visualized vascular structures appear normal in the absence of contrast. Bony vascular fo ramina and canals are intact. IMPRESSION: 1. Comminuted right orbital floor (maxillary sinus roof) fracture with inferior displacement. There i s a hematoma in the right maxillary sinus. 2. Displaced fracture of the medial wall of the right orbit. No significant discrepancy with the preliminary interpretation. Reviewed by: Ethan Bailey MD on 03/29/2023 8:18 AM PDT Approved by: Ethan Bailey MD on 03/29/2023 8:18 AM PDT Station ID: [id number]
== END 2023-03-29 07:44 | disposition home or self-care (01) ==
LOC: EDUNIT# → ED 03:15
DX: S02.31XA Fracture of orbital floor, right side, initial encounter for closed fracture (principal); S02.831A Fracture of medial orbital wall, right side, initial encounter for closed fracture; S01.81XA Laceration without foreign body of other part of head, initial encounter; W18.30XA Fall on same level, unspecified, initial encounter; Y92.002 Bathroom of unspecified non-institutional (private) residence as the place of occurrence of the external cause; I10 Essential (primary) hypertension; E78.00 Pure hypercholesterolemia, unspecified; I48.91 Unspecified atrial fibrillation; Z79.899 Other long term (current) drug therapy; Z79.84 Long term (current) use of oral hypoglycemic drugs; Z79.01 Long term (current) use of anticoagulants
CPT/HCPCS: 12011; 70450; 70486; 99284; A9270

== ENCOUNTER 2023-05-10 08:00 | Outpatient (CLI) | payer MEDICARE, OTHER ==
--- NOTE | 2023-05-10 12:10 | XRAY Report ---
PROCEDURE: Knee 4 View BILAT INDICATIONS: BILAT KNEE PAIN TECHNIQUE: 4 views of the knee was obtained. COMPARISON: None FINDINGS: Bones: No fractures or dislocations. No suspicious bony lesions. Severe medial and moderate lateral compartmental joint space narrowing with marginal osteophyte. Bilateral patellofemoral joint space n arrowing noted as well. Patellar marginal spurring about the joint effusion Soft tissues: No suspicious soft tissue calcifications or masses. IMPRESSION: Moderate to severe bilateral osteoarthritis Reviewed by: Claudy Guaman MD on 05/10/2023 11:08 AM [facility] Approved by: Claudy Guaman MD on 05/10/2023 11:08 AM [facility] Station ID: [id number]
== END 2023-05-10 23:59 | disposition home or self-care (01) ==
LOC: DI.WOS 08:00
PROVIDERS: ATTEND Orthopaedic Surgery
DX: M17.0 Bilateral primary osteoarthritis of knee (principal)

== ENCOUNTER 2023-06-02 14:11 | Outpatient (CLI) | payer MEDICARE, OTHER ==
--- NOTE | 2023-06-09 11:44 | Mammography Report ---
BILATERAL DIGITAL SCREENING MAMMOGRAM 3D/2D: 06/02/2023 CLINICAL: Routine screening. No prior exams were available for comparison. There are scattered areas of fibroglandular density in both breasts (category b / 25%-50% glandular t issue). There are grouped heterogeneous calcifications in the right breast at 7 o'clock posterior depth. There also are grouped heterogeneous calcifications in the right breast at 1 o'clock middle depth. There are grouped heterogeneous calcifications in the left breast at 2 o'clock middle depth. No other significant masses or calcifications are seen in either breast. IMPRESSION: INCOMPLETE: NEEDS ADDITIONAL IMAGING EVALUATION The grouped heterogeneous calcifications in the right breast at 7 o'clock posterior depth are indeter minate. The grouped heterogeneous calcifications in the right breast at 1 o'clock middle depth are indetermin ate. The grouped heterogeneous calcifications in the left breast at 2 o'clock middle depth are indetermina te. Bilateral diagnostic mammogram for additional views to include mediolateral and spot magnification vi ews is recommended. Based on the Tyrer Cuzick model (a risk assessment model) the patients lifetime risk is 4.7% and her 10 year risk is 3.0%. According to the ACR, ACS, and NCCN guidelines, an annual breast MRI exam kaylah g with mammogram is recommended if the patients lifetime risk is 20% or greater. This exam was interpreted at Station ID: [id number]. NOTE: For mammograms, a report in lay terms will be sent to the patient. Approximately 15% of breast malignancies will not be visualized mammographically. In the management of a palpable breast mass, a negative mammogram must not discourage biopsy of a clinically suspicious lesion. Electronically Signed By: Ahsan Cisneros M.D. aty/:06/09/2023 07:40:23 ACR BI-RADS Category 0: Incomplete 3340F PARENCHYMAL PATTERN: (A) - The breast(s) demonstrate(s) scattered fibroglandular densities. BI-RADS CATEGORY: (0) - 0 RECOMMENDATION: (ADDMAM) - Recommend additional mammographic views. [id number] Immediate follow-up LATERALITY: (B)
== END 2023-06-02 14:12 | disposition home or self-care (01) ==
LOC: DI.S 14:11
DX: Z12.31 Encounter for screening mammogram for malignant neoplasm of breast (principal); R92.323 Mammographic fibroglandular density, bilateral breasts; R92.1 Mammographic calcification found on diagnostic imaging of breast

== ENCOUNTER 2023-07-30 07:00 | Outpatient (CLI) | payer OTHER, MEDICARE ==
--- NOTE | 2023-07-30 19:57 | XRAY Report ---
PROCEDURE: Hip w/Pelvis 2-3V RT INDICATIONS: RIGHT HIP OSTEOARTHRITIS TECHNIQUE: 2 view(s) of the hip were acquired. COMPARISON: None FINDINGS: Bones: No fractures or dislocations. No suspicious bony lesions. The visualized pelvic ring appear s intact. Severe right hip joint space narrowing without femoral head remodeling. Marginal osteophyt es are present. Soft tissues: No suspicious soft tissue calcifications or masses. Pelvic intrauterine device noted. IMPRESSION: Severe right hip arthritic changes without femoral head remodeling Reviewed by: Claudy Guaman MD on 07/30/2023 6:56 PM [facility]ST Approved by: Claudy Guaman MD on 07/30/2023 6:56 PM AKST Station ID: [id number]
--- NOTE | 2023-07-30 19:58 | XRAY Report ---
PROCEDURE: Lumbar Spine 2 View INDICATIONS: LUMBAR SPONDYLOSIS TECHNIQUE: 3 view(s) of the lumbar spine were acquired. COMPARISON: None. FINDINGS: Bones: Vertebral body height and alignment is maintained. No suspicious bony lesions. Diffuse disc s pace narrowing and facet atrophy present. Grade 1 retrolisthesis present at L1-L2 3 as well as L5-S1. Atherosclerotic calcification of the abdominal aorta without evidence of aneurysm. Soft tissues: Overlying bowel gas pattern is normal. No suspicious soft tissue calcifications. Kassandra gical clips present in the upper quadrant. Midline pelvic intrauterine device is present. IMPRESSION: Degenerative disc disease and arthropathy without fracture Reviewed by: Claudy Guaman MD on 07/30/2023 6:57 PM [facility] Approved by: Claudy Guaman MD on 07/30/2023 6:57 PM [facility] Station ID: [id number]
== END 2023-07-30 23:59 | disposition home or self-care (01) ==
LOC: DI.S 07:00
PROVIDERS: ATTEND Registered Nurse
DX: M16.11 Unilateral primary osteoarthritis, right hip (principal); M47.896 Other spondylosis, lumbar region; M51.36 Other intervertebral disc degeneration, lumbar region